=== PATIENT | male | born 1990 ===

== ENCOUNTER 2017-03-13 09:02 | Inpatient (IN) | payer MEDICAID ==
[2017-03-13 09:17] VITALS: BMI 20.5
--- NOTE | 2017-03-13 10:25 | ED PDOC ---
Arrival/HPI - General Chief Complaint: Psychiatric Evaluation Time Seen by Provider: 03/13/17 09:17 Historian: Patient - History of Present Illness Narrative History of Present Illness (Text): 03/13/17 08:45 William Azul is a 26 year old male whose past medical history includes ETOH abuse, transferred from [facility], for psych admission and evaluation. Patient admitted to suicidal ideation by Dr. Frost. Patient denies homicidal ideation, chest pain, shortness of breath, headache, fever, chills, cough, nausea, vomiting, diarrhea, abdominal pain, dizziness or other complaints. No PMD Time/Duration: Other (transferred from [facility] for psych admission) Symptom Onset: Sudden Modifying Factors (Text): None Associated Symptoms (Text): Suicidal Ideation and ETOH withdrawal Past Medical History - Provider Review Nursing Documentation Reviewed: Yes - Infectious Disease Hx of Infectious Diseases: None - Cardiac Hx Cardiac Disorders: No Hx Hypertension: No - Pulmonary Hx Tuberculosis: No - Neurological HX Cerebrovascular Accident: No Hx Seizures: No - Hematological/Oncological Hx Cancer: No - Musculoskeletal/Rheumatological Hx Falls: No - Genitourinary/Gynecological Hx Sexually Transmitted Diseases: No - Psychiatric Hx Anxiety: Yes Hx Bipolar Disorder: Yes Hx Depression: Yes Hx Substance Use: Yes - Surgical History Hx Orthopedic Surgery: Yes (Right wrist surgery) Other/Comment: surgery rt wrist 2010 - Anesthesia Hx Anesthesia: Yes Hx Anesthesia Reactions: No Hx Malignant Hyperthermia: No - Suicidal Assessment Feels Threatened In Home Enviroment: No Family/Social History - Physician Review Nursing Documentation Reviewed: Yes Family/Social History: Unknown Family HX Smoking Status: Heavy Smoker > 10 Cigarettes Daily Hx Alcohol Use: Yes Hx Substance Use: Yes Substance used: marijuana Hx Substance Use Treatment: Yes Allergies/Home Meds Allergies/Adverse Reactions: Allergies haloperidol [From Haldol] Adverse Reaction (Verified 03/13/17 09:28) PAIN muscle cramping, dystonia haloperidol lactate [From Haldol] Adverse Reaction (Verified 03/13/17 10:38) PAIN dystonia as per patient Home Medications: Home Meds Medication Instructions Recorded Confirmed Elviteg/Elis/Emtric/Tenofo Dis 1 each PO DAILY 03/12/17 03/12/17 [Stribild Tablet] Review of Systems - Physician Review All systems were reviewed & negative as marked: Yes - Review of Systems Respiratory: absent: SOB Cardiovascular: absent: Chest Pain Neurological: absent: Headache Psychiatric: Suicidal Ideation (with plan), Other (ETOH withdrawal) Physical Exam Vital Signs Reviewed: Yes Vital Signs Temp Pulse Resp BP Pulse Ox 03/13/17 09:03 98.7 F 98 H 19 124/74 96 Temperature: Afebrile Blood Pressure: Normal Pulse: Tachycardic Respiratory Rate: Normal Appearance: Positive for: Well-Appearing, Non-Toxic, Comfortable Pain Distress: None Mental Status: Positive for: Alert and Oriented X 3 - Systems Exam Head: Present: Atraumatic, Normocephalic Pupils: Present: PERRL Extroacular Muscles: Present: EOMI Conjunctiva: Present: Normal Mouth: Present: Moist Mucous Membranes Neck: Present: Normal Range of Motion Respiratory/Chest: Present: Clear to Auscultation, Good Air Exchange. No: Respiratory Distress, Accessory Muscle Use Cardiovascular: Present: Regular Rate and Rhythm, Normal S1, S2. No: Murmurs Abdomen: Present: Normal Bowel Sounds. No: Tenderness, Distention, Peritoneal Signs Back: Present: Normal Inspection Upper Extremity: Present: Normal Inspection. No: Cyanosis, Edema Lower Extremity: Present: Normal Inspection. No: Edema Neurological: Present: GCS=15, CN II-XII Intact, Speech Normal, Other (mild hand tremors; no tongue fasiculations) Skin: Present: Warm, Dry, Normal Color. No: Rashes Psychiatric: Present: Alert, Oriented x 3, Normal Insight, Normal Concentration , Suicidal Ideation, Other Medical Decision Making ED Course and Treatment: 03/13/17 Impression: 26 year old male with suicidal ideation and ETOH withdrawal. Plan: -- Ativan was not given secondary to patient going straight up to Psych. Progress Notes: Patient was accepted by Dr. Frost as a transfer and will be admitted under Dr. Cristina Resendez. - Medication Orders Current Medication Orders: Acetaminophen (Tylenol 325mg Tab) 650 mg PO Q6H PRN PRN Reason: Pain, moderate (4-7) Al Hydrox/Mg Hydrox/Simethicone (Maalox Plus 30 Ml) 30 ml PO DAILY PRN PRN Reason: Indigestion / Heartburn Folic Acid (Folic Acid) 1 mg PO DAILY [facility] Last Admin: 03/13/17 14:27 Dose: 1 mg Gabapentin (Neurontin) 300 mg PO TID [facility] PRN Reason: Protocol Lorazepam (Ativan) 2 mg PO QID TONI PRN Reason: Protocol Last Admin: 03/13/17 14:27 Dose: 2 mg Re-Assess: Reassess Psych Meds Document 03/13/17 15:27 CV (Rec: 03/13/17 15:50 CV [id number]) Reassess Psych Med Effective Lorazepam (Ativan) 2 mg PO Q6H PRN; Protocol PRN Reason: alcohol withdrawals Magnesium Hydroxide (Milk Of Magnesia) 30 ml PO DAILY PRN PRN Reason: Constipation Mirtazapine (Remeron) 15 mg PO HS TONI Multivitamins/Minerals (Therapeutic-M Tab) 1 tab PO 0800 TONI Nicotine (Nicoderm Cq) 1 patch TD DAILY [facility] Last Admin: 03/13/17 14:27 Dose: 1 patch Thiamine HCl (Vitamin B1 Tab) 100 mg PO DAILY [facility] Last Admin: 03/13/17 14:27 Dose: 100 mg Zaleplon (Sonata) 5 mg PO HS PRN PRN Reason: Insomnia Discontinued Medications Lorazepam (Ativan) 2 mg PO ONCE ONE PRN Reason: Protocol Stop: 03/13/17 10:20 Last Admin: 03/13/17 12:27 Dose: 2 mg Re-Assess: Reassess Psych Meds Document 03/13/17 13:27 CV (Rec: 03/13/17 14:24 CV [id number]) Reassess Psych Med Effective - Scribe Statement The provider has reviewed the documentation as recorded by the Scribe 03/13/2017 Karla Turner Provider Scribe Attestation: All medical record entries made by the Scribe were at my direction and personally dictated by me. I have reviewed the chart and agree that the record accurately reflects my personal performance of the history, physical exam, medical decision making, and the department course for this patient. I have also personally directed, reviewed, and agree with the discharge instructions and disposition. Disposition/Present on Arrival - Present on Arrival Any Indicators Present on Arrival: No History of DVT/PE: No History of Uncontrolled Diabetes: No Urinary Catheter: No History of Decub. Ulcer: No History Surgical Site Infection Following: None - Disposition Have Diagnosis and Disposition been Completed?: Yes Diagnosis: Psychiatric care, Alcohol withdrawal Disposition: HOSPITALIZED Disposition Time: 10:34 Patient Plan: Admission Condition: FAIR
[2017-03-13] MEDS ORDERED: Alum-Mag Hydrox-Simethicone Susp (30 mL) PO PRN (12:32)
[2017-03-13] MEDS ORDERED: Magnesium Hydroxide Susp 30 ml UD PO PRN (12:33)
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
--- NOTE | 2017-03-13 15:06 | PCM.BM ---
<Dana More Y - Last Filed: 03/13/17 15:05> - Milieu Protocol Milieu Narrative: milieu/structure/supportive therapy Gabapentin [Neurontin] 300mg tid will be resumed for mood stabilization, pt said he tolerated this med well will initiate ativan 2mg po qid scheduled and PRN for breakthrough withdrawal symptoms. will give remeron 15mg po hs for depression and insomnia will start MVI, thiamine, folic acid will call medical consult for HIV SW evaluation for possible inpatient rehab as per ED report pt was on: Elviteg/Elis/Emtric/Tenofo Dis [Stribild Tablet] 1 each PO DAILY will monitor pt's closely Family Contact Family involvement: Family/SO is involved Family contact: Patient agrees to contact - Goals for Treatment Patient goals for treatment: "I want to feel happy." Discharge/Continuing Care - Education Needs Education Needs: Patient Medication, Patient Diagnosis/Disease Process, Patient Coping Skills, Patient Community resources, Patient Health Practices/Safety, Patient Aftercare Safety Plan - Discharge Discharge Criteria: Tolerates medication w/o severe side effects, Free of Suicidal thoughts, Normal sleep pattern, No longer exhibiting s/s of withdrawal , Reduction of target symptoms Discharge to:: Home - Additional Comments milieu/structure/supportive therapy Gabapentin [Neurontin] 300mg tid will be resumed for mood stabilization, pt said he tolerated this med well will initiate ativan 2mg po qid scheduled and PRN for breakthrough withdrawal symptoms. will give remeron 15mg po hs for depression and insomnia will start MVI, thiamine, folic acid will call medical consult for HIV SW evaluation for possible inpatient rehab as per ED report pt was on: Elviteg/Elis/Emtric/Tenofo Dis [Stribild Tablet] 1 each PO DAILY will monitor pt's closely - Treatment Team Participation Patient/Family/SO Statement: milieu/structure/supportive therapy Gabapentin [Neurontin] 300mg tid will be resumed for mood stabilization, pt said he tolerated this med well will initiate ativan 2mg po qid scheduled and PRN for breakthrough withdrawal symptoms. will give remeron 15mg po hs for depression and insomnia will start MVI, thiamine, folic acid will call medical consult for HIV SW evaluation for possible inpatient rehab as per ED report pt was on: Elviteg/Elis/Emtric/Tenofo Dis [Stribild Tablet] 1 each PO DAILY will monitor pt's closely <Dima Johnson - Last Filed: 03/13/17 15:40> Treatment Plan Problems - Problems identified on initial assessmt hopelessness Date Initiated: 03/13/17 Time Initiated: 10:45 Assessment reference: NA Status: Active Priority: 1 Comment: lack of motivation/frustration feelings of worthlessness Date Initiated: 03/13/17 Assessment reference: NA Priority: 2 Comment: suicidal ideation plan to jump in front of moving traffic medication nonadherence Date Initiated: 03/13/17 Assessment reference: NA Status: Active Priority: 3 Comment: patient reported that he run out of medications anxiety related to substance use Date Initiated: 03/13/17 Assessment reference: NA Status: Active Priority: 4 Comment: drinking 8-10 beers daily and marijuana on/off Treatment assets and liabiliti Patient Assests: cooperative, educated, insightful, ADL independent, negotiates basic needs, good interpersonal skills Patient Liabilities: substance abuse, medical problems - Milieu Protocol Maintain good personal hygiene: every shift Encourage regular showers, every shift Remind patient to perform daily oral care, every shift Assist patient to perform ADL's Conduct patient checks and document Observation sheet: Q15 minutes Maintain personal safety: every shift Educate patient to report safety concerns to staff, every shift Monitor environment for contraband/sharps Medication safety: Monitor for expected outcome, potential side effects: every shift, Assess barriers to learning: every shift, Assess readiness for medication education: every shift <Cristina Goddard - Last Filed: 03/14/17 14:38> - Diagnosis (1) Alcohol dependence Status: Chronic Interventions: 03/14/17 14:37 Monitoring withdrawal symptoms Medical detoxification Pharmacotherapy for alcohol/benzos/opioid dependence Maintaining sobriety Relapse prevention Possible rehabilitation Motivational interviewing 12-step programs: AA meetings (2) Bipolar 1 disorder Status: Chronic Interventions: 03/14/17 14:37 Psychoeducation Psychopharmacology/adjustment of medications as needed/ monitoring possible side effects Monitor blood level of mood stabilizers Evaluate pt on daily basis Compliance with medications and follow up appointments Suicide and homicide risk assessment and prevention, coping strategies, safety plan Relapse prevention Reduction of symptoms Improve functional status Family intervention As outpatient: cognitive behavioral therapy
[2017-03-14 08:36] LABS: CHOLESTEROL 223 mg/dL (130-200); GLUCOSE,FASTING 100 mg/dL (65-110)
[2017-03-14] MEDS: Multivitamin With Minerals Tab PO SCH (08:49)
[2017-03-14 08:53] LABS: FREE T4 0.99 ng/dL (0.78-2.19)
[2017-03-14 09:07] LABS: THYROID STIMULATING HORMONE 3.27 mIU/mL (0.46-4.68)
--- NOTE | 2017-03-14 14:45 | PCM.PYCHPN ---
Psychiatric Progress Note - Psychiatric Progress Note Patient seen today, length of contact: 30min Patient Chief Complaint: "I feel better, I slept well last night" Problems Identified/Issues Discussed: Suicide/ homicide prevention, past psychiatric h/o, current psychiatric symptoms , medical problems, risk/benefits and alternatives of medications, medications compliance, coping strategies, substance abuse h/o, relapse prevention, importance of follow up with psychiatrist and therapist, discharge plan. Medical Problems: HIV Diagnostic Results: Lab Results 03/14/17 08:15: Free T4 0.99, TSH 3rd Generation 3.27 03/14/17 08:15: Fasting Glucose 100, Triglycerides 109, Cholesterol 223 H, LDL Cholesterol Direct 102, HDL Cholesterol 97 H Vital Signs Temp Pulse Resp BP Pulse Ox 03/14/17 07:21 97.5 F L 78 20 121/82 03/13/17 20:51 85 132/83 03/13/17 11:00 20 03/13/17 10:00 98.4 F 74 20 139/89 03/13/17 09:03 98.7 F 98 H 19 124/74 96 DSM 5 Symptoms Update: Shortly patient is 26 year old male, self reported h/o depression vs bipolar, alcohol use disorder, was transferred from the [facility] for evaluation of depressive symptoms, possible suicidal ideation with the plan to walk into the traffic. pt was seen and examined at the day treatment program, with medical student. pt presented with some improvements in regards of withdrawals, pt said that he slept better last night. pt was asking intelligent questions about his meds, pt was educated about them. pt reported to lose 15Lb because he was not eating well, asked for ensure, this ticket writer will call for dietary consult pt said that he is more hopeful, but still depressed. pt denied thoughts of harming self or others. pt's withdrawals are better, VS wnl. pt tolerates meds well, no side effects observed or reported, AIMS 0, no EPS. as per staff, pt is visible in the unit, started to socialize with others. Impression: r/o bipolar disorder alcohol use disorder alcohol withdrawal symptoms r/o substance induced mood disorder cannabis abuse Medication Change: Yes Medical Record Reviewed: Yes Consults ordered or reviewed: medical consult was called Mental Status Examination - Cognitive Function Orientation: Person, Place, Situation Memory: Intact Attention: Poor Concentration: Poor Association: WNL Fund of Knowledge: WNL - Mood Mood: Depressed, Anxious - Affect Affect: Constricted (tearful) - Formal Thought Process Formal Thought Process: No Impairment - Suicidal Ideation Suicidal Ideation: No - Homicidal Ideation Homicidal Ideation: No Goal/Treatment Plan - Goal/Treatment Plan Need for Continued Stay: Remain at risks for inpatient hospitalization, Severe depression anxiety, Discharge may exacerbated symptoms, Severe functional impairment Progress Toward Problem(s) and Goals/Treatment Plan: milieu/structure/supportive therapy Gabapentin [Neurontin] 600mg tid for mood stabilization, pt said he tolerated this med well will initiate ativan 2mg po qid scheduled and PRN for breakthrough withdrawal symptoms. will give remeron 15mg po hs for depression and insomnia will start MVI, thiamine, folic acid will call medical consult for HIV SW evaluation for possible inpatient rehab as per ED report pt was on: Elviteg/Elis/Emtric/Tenofo Dis [Stribild Tablet] 1 each PO DAILY will monitor pt's closely Estimated Date of D/C: 03/19/17
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
[2017-03-15 08:10] LABS: ALKALINE PHOSPHATASE 65 U/L (38-133); ALT/SGPT 93 U/L (7-56); AST/SGOT 103 U/L (15-59); BILIRUBIN,TOTAL 0.9 mg/dL (0.2-1.3); BLOOD UREA NITROGEN 15 mg/dL (7-21); CALCIUM 9.2 mg/dL (8.4-10.5); CARBON DIOXIDE 28 mmol/L (21-33); CHLORIDE 102 mmol/L (95-110); GFR AFRICAN-AMERICAN > 60; GLUCOSE,RANDOM 98 mg/dL (70-110); POTASSIUM 4.7 mmol/L (3.6-5.0); SODIUM 138 mmol/L (132-148); TOTAL PROTEIN 8.8 g/dL (5.8-8.3)
--- NOTE | 2017-03-15 08:32 | PCM.PYCHPN ---
Psychiatric Progress Note - Psychiatric Progress Note Patient seen today, length of contact: 30min Patient Chief Complaint: "I was upset, my fiance did not call me..." Problems Identified/Issues Discussed: Suicide/ homicide prevention, past psychiatric h/o, current psychiatric symptoms , medical problems, risk/benefits and alternatives of medications, medications compliance, coping strategies, substance abuse h/o, relapse prevention, importance of follow up with psychiatrist and therapist, discharge plan. Medical Problems: HIV Diagnostic Results: Lab Results 03/14/17 08:15: Free T4 0.99, TSH 3rd Generation 3.27 03/14/17 08:15: Fasting Glucose 100, Triglycerides 109, Cholesterol 223 H, LDL Cholesterol Direct 102, HDL Cholesterol 97 H Vital Signs Temp Pulse Resp BP Pulse Ox 03/14/17 07:21 97.5 F L 78 20 121/82 03/13/17 20:51 85 132/83 03/13/17 11:00 20 03/13/17 10:00 98.4 F 74 20 139/89 03/13/17 09:03 98.7 F 98 H 19 124/74 96 DSM 5 Symptoms Update: Shortly patient is 26 year old male, self reported h/o depression vs bipolar, alcohol use disorder, was transferred from the [facility] for evaluation of depressive symptoms, possible suicidal ideation with the plan to walk into the traffic. pt was seen and examined at the day treatment program, with medical student. pt presented with some improvements in regards of withdrawals, pt said that he slept better last night. pt is upset that his fiance did not call him, as per RN report pt was crying and was restless and agitated yesterday, but no need IM, was able to calm down after 1:1 interaction. pt was asking intelligent questions about his meds, pt was educated about them. pt reported to lose 15Lb because he was not eating well, medical consult appreciated, dietitian consult was called. pt said that he is more hopeful, but still depressed. pt denied thoughts of harming self or others. pt's withdrawals are better, VS wnl. pt tolerates meds well, no side effects observed or reported, AIMS 0, no EPS. Impression: r/o bipolar disorder alcohol use disorder alcohol withdrawal symptoms r/o substance induced mood disorder cannabis abuse Medication Change: Yes (remeron increased, ativan decreased) Medical Record Reviewed: Yes Consults ordered or reviewed: medical consult was called Mental Status Examination - Cognitive Function Orientation: Person, Place, Situation Memory: Intact Attention: Poor Concentration: Poor Association: WNL Fund of Knowledge: WNL - Mood Mood: Depressed, Anxious - Affect Affect: Constricted (tearful) - Formal Thought Process Formal Thought Process: No Impairment - Suicidal Ideation Suicidal Ideation: No - Homicidal Ideation Homicidal Ideation: No Goal/Treatment Plan - Goal/Treatment Plan Need for Continued Stay: Remain at risks for inpatient hospitalization, Severe depression anxiety, Discharge may exacerbated symptoms, Severe functional impairment Progress Toward Problem(s) and Goals/Treatment Plan: milieu/structure/supportive therapy Gabapentin [Neurontin] 600mg tid for mood stabilization, pt said he tolerated this med well will start taper down ativan today will be 2mg po tid, taper down accordingly will increase remeron 30mg po hs for depression and insomnia MVI, thiamine, folic acid medical consult appreciated for HIV SW evaluation for possible inpatient rehab dietitian consult called as per ED report pt was on: Elviteg/Elis/Emtric/Tenofo Dis [Stribild Tablet] 1 each PO DAILY will monitor pt's closely Estimated Date of D/C: 03/19/17
[2017-03-15] MEDS: Multivitamin With Minerals Tab PO SCH (10:07)
[2017-03-15] MEDS: Pantoprazole 40 mg EC Tab PO SCH (10:07)
[2017-03-15 12:16] LABS: PH,URINE 7.5 (4.7-8.0); URINE BILIRUBIN NEGATIVE (NEGATIVE); URINE BLOOD NEGATIVE (NEGATIVE); URINE GLUCOSE (UA) NEGATIVE (NEGATIVE); URINE KETONE TRACE mg/dL (NEGATIVE); URINE LEUKOCYTE ESTERASE NEGATIVE Leu/uL (NEGATIVE); URINE PROTEIN NEGATIVE mg/dL (<30 mg/dL)
[2017-03-15 12:20] LABS: URINE APPEARANCE CLOUDY (CLEAR); URINE COLOR YELLOW (YELLOW)
--- NOTE | 2017-03-15 16:15 | CP.PCM.CON ---
<Luke Hurt - Last Filed: 03/15/17 17:06> History of Present Illness - History of Present Illness History of Present Illness: PGY-[address] Acevedo's Neurology Service: Reason for consultation: Memory issues This is a 26 year old male with PMHx HIV, polysubstance abuse (tobacco, alcohol , marijuana), anxiety, depression who presented to the hospital with suicidal ideation. Patient was noted to have episodes of forgetfulness. Per EMR, patient does not remember that he covered himself with a blanket and lay on the floor in the dining area. Patient states that he was told that he did something that he does not remember doing. At this time patient denies suicidal ideation but admits severe anxiety and feelings of hopelessness. Patient states that he has not had any prior memory problem. Patient is currently under a lot of stress due to his home situation and job status. PMHx: HIV from , polysubstance abuse, anxiety, depression PSHx: Right wrist surgery Allergies: Haldol Social: Current smoker, ETOH abuser, marijuana use. Review of Systems - Constitutional Constitutional: absent: Headache, Weakness - EENT Eyes: absent: Change in Vision Ears: absent: Decreased Hearing - Cardiovascular Cardiovascular: absent: Chest Pain - Respiratory Respiratory: absent: Dyspnea - Gastrointestinal Gastrointestinal: absent: Abdominal Pain, Nausea, Vomiting - Musculoskeletal Musculoskeletal: absent: Numbness - Neurological Neurological: absent: Confusion, Dizziness, Headaches, Tingling, Weakness - Psychiatric Psychiatric: Anxiety, Depression, Hopelessness, Panic Attacks. absent: Suicidal Ideation Past Patient History - Infectious Disease Hx of Infectious Diseases: None - Past Medical History & Family History Past Medical History?: Yes - Past Social History Smoking Status: Heavy Smoker > 10 Cigarettes Daily Drugs: Cannabis - CARDIAC Hx Cardiac Disorders: No Hx Hypertension: No - PULMONARY Hx Tuberculosis: No - NEUROLOGICAL HX Cerebrovascular Accident: No Hx Seizures: No - HEENT Hx HEENT Problems: No - RENAL Hx Chronic Kidney Disease: No - ENDOCRINE/METABOLIC Hx Endocrine Disorders: No - HEMATOLOGICAL/ONCOLOGICAL Hx Cancer: No - INTEGUMENTARY Hx Dermatological Problems: No - MUSCULOSKELETAL/RHEUMATOLOGICAL Hx Falls: No - GASTROINTESTINAL Hx Gastrointestinal Disorders: No - GENITOURINARY/GYNECOLOGICAL Hx Sexually Transmitted Disorders: No - PSYCHIATRIC Hx Anxiety: Yes Hx Bipolar Disorder: Yes Hx Depression: Yes Hx Substance Use: Yes - SURGICAL HISTORY Hx Orthopedic Surgery: Yes (Right wrist surgery) Other/Comment: surgery rt wrist 2010 - ANESTHESIA Hx Anesthesia: Yes Hx Anesthesia Reactions: No Hx Malignant Hyperthermia: No Meds Allergies/Adverse Reactions: Allergies Allergy/AdvReac Type Severity Reaction Status Date / Time haloperidol [From Haldol] AdvReac PAIN Verified 03/13/17 09:28 haloperidol lactate AdvReac PAIN Verified 03/13/17 10:38 [From Haldol] - Medications Medications: Current Medications Al Hydrox/Mg Hydrox/Simethicone (Maalox Plus 30 Ml) 30 ml PO DAILY PRN PRN Reason: Indigestion / Heartburn Folic Acid (Folic Acid) 1 mg PO DAILY [facility] Last Admin: 03/15/17 10:07 Dose: 1 mg Gabapentin (Neurontin) 600 mg PO QID TONI PRN Reason: Protocol Last Admin: 03/15/17 13:27 Dose: 600 mg Lorazepam (Ativan) 2 mg PO Q6H PRN; Protocol PRN Reason: alcohol withdrawals Last Admin: 03/15/17 08:00 Dose: 2 mg Lorazepam (Ativan) 2 mg PO TID TONI PRN Reason: Protocol Last Admin: 03/15/17 13:00 Dose: 2 mg Magnesium Hydroxide (Milk Of Magnesia) 30 ml PO DAILY PRN PRN Reason: Constipation Mirtazapine (Remeron) 30 mg PO HS [facility] Multivitamins/Minerals (Therapeutic-M Tab) 1 tab PO 0800 [facility] Last Admin: 03/15/17 10:07 Dose: 1 tab Nicotine (Nicoderm Cq) 1 patch TD DAILY [facility] Last Admin: 03/15/17 10:07 Dose: 1 patch Pantoprazole Sodium (Protonix Ec Tab) 40 mg PO 0600 [facility] Last Admin: 03/15/17 10:07 Dose: 40 mg Thiamine HCl (Vitamin B1 Tab) 100 mg PO DAILY [facility] Last Admin: 03/15/17 10:09 Dose: 100 mg Zaleplon (Sonata) 5 mg PO HS PRN PRN Reason: Insomnia Last Admin: 03/14/17 21:30 Dose: 5 mg Physical Exam - Constitutional Appears: No Acute Distress - Head Exam Head Exam: ATRAUMATIC, NORMAL INSPECTION, NORMOCEPHALIC - Eye Exam Eye Exam: EOMI, PERRL - ENT Exam ENT Exam: Mucous Membranes Moist - Respiratory Exam Respiratory Exam: Clear to Auscultation Bilateral - Cardiovascular Exam Cardiovascular Exam: REGULAR RHYTHM - GI/Abdominal Exam GI & Abdominal Exam: Normal Bowel Sounds - Neurological Exam Neurological exam: Alert, CN II-XII Intact, Oriented x3, Reflexes Normal Additional comments: Manual muscle strength 5/5 bilateral UE and LE No pronator drift Sensations intact bilaterally Down-going plantar responses. - Psychiatric Exam Psychiatric exam: Anxious Results - Vital Signs Recent Vital Signs: Last Vital Signs Temp 98.0 F 03/15/17 07:35 Pulse 100 H 03/15/17 07:35 Resp 20 03/15/17 07:35 BP 113/73 03/15/17 07:35 Pulse Ox 96 03/13/17 09:03 - Labs Result Diagrams: 03/15/17 07:40 Labs: Laboratory Results - last 24 hr 03/14/17 03/15/17 03/15/17 08:15 07:40 07:40 Sodium 138 Potassium 4.7 Chloride 102 Carbon Dioxide 28 Anion Gap 13 BUN 15 Creatinine 0.8 Est GFR ( Amer) > 60 Est GFR (Non-Af Amer) > 60 Random Glucose 98 Calcium 9.2 Total Bilirubin 0.9 AST 103 H ALT 93 H Alkaline Phosphatase 65 Total Protein 8.8 H Albumin 4.3 Globulin 4.5 Albumin/Globulin Ratio 1.0 L Urine Color Urine Appearance Urine pH Ur Specific [place] Urine Protein Urine Glucose (UA) Urine Ketones Urine Blood Urine Nitrate Urine Bilirubin Urine Urobilinogen Ur Leukocyte Esterase RPR Nonreactive Hepatitis A IgM Ab Negative Hep Bs Antigen Negative Hep B Core IgM Ab Negative Hepatitis C Antibody Negative 03/15/17 11:40 Sodium Potassium Chloride Carbon Dioxide Anion Gap BUN Creatinine Est GFR ( Amer) Est GFR (Non-Af Amer) Random Glucose Calcium Total Bilirubin AST ALT Alkaline Phosphatase Total Protein Albumin Globulin Albumin/Globulin Ratio Urine Color Yellow Urine Appearance Cloudy Urine pH 7.5 Ur Specific [place] 1.015 Urine Protein Negative Urine Glucose (UA) Negative Urine Ketones Trace H Urine Blood Negative Urine Nitrate Negative Urine Bilirubin Negative Urine Urobilinogen 1.0 H Ur Leukocyte Esterase Negative RPR Hepatitis A IgM Ab Hep Bs Antigen Hep B Core IgM Ab Hepatitis C Antibody Assessment & Plan - Assessment and Plan (Free Text) Assessment: This is a 26 year old male with PMHx HIV, polysubstance abuse (tobacco, alcohol , marijuana), anxiety, depression who presented to the hospital with suicidal ideation. Patient had episode of forgetfulness. This is likely due to a psychiatric stress response based on patient's current circumstances with his employment status and financial situation. Plan: 1) Coenzyme Q10 400 mg daily for memory and attentiveness 2) Advised to do concentration exercises. 3) Advised to do relaxation techniques Patient is neurologically stable Case discussed with Dr. Curtis Hurt PGY1 - Date & Time Date: 03/15/17 Time: 15:00 <Jagdeep Acevedo - Last Filed: 03/15/17 17:40> Meds - Medications Medications: Current Medications Al Hydrox/Mg Hydrox/Simethicone (Maalox Plus 30 Ml) 30 ml PO DAILY PRN PRN Reason: Indigestion / Heartburn Folic Acid (Folic Acid) 1 mg PO DAILY [facility] Last Admin: 03/15/17 10:07 Dose: 1 mg Gabapentin (Neurontin) 600 mg PO QID TONI PRN Reason: Protocol Last Admin: 03/15/17 17:32 Dose: 600 mg Lorazepam (Ativan) 2 mg PO Q6H PRN; Protocol PRN Reason: alcohol withdrawals Last Admin: 03/15/17 08:00 Dose: 2 mg Lorazepam (Ativan) 2 mg PO TID TONI PRN Reason: Protocol Last Admin: 03/15/17 17:33 Dose: 2 mg Magnesium Hydroxide (Milk Of Magnesia) 30 ml PO DAILY PRN PRN Reason: Constipation Mirtazapine (Remeron) 30 mg PO HS [facility] Multivitamins/Minerals (Therapeutic-M Tab) 1 tab PO 0800 [facility] Last Admin: 03/15/17 10:07 Dose: 1 tab Nicotine (Nicoderm Cq) 1 patch TD DAILY [facility] Last Admin: 03/15/17 10:07 Dose: 1 patch Pantoprazole Sodium (Protonix Ec Tab) 40 mg PO 0600 [facility] Last Admin: 03/15/17 10:07 Dose: 40 mg Thiamine HCl (Vitamin B1 Tab) 100 mg PO DAILY [facility] Last Admin: 03/15/17 10:09 Dose: 100 mg Zaleplon (Sonata) 5 mg PO HS PRN PRN Reason: Insomnia Last Admin: 03/14/17 21:30 Dose: 5 mg Results - Vital Signs Recent Vital Signs: Last Vital Signs Temp 98.0 F 03/15/17 07:35 Pulse 93 H 03/15/17 16:00 Resp 20 03/15/17 07:35 BP 147/89 03/15/17 16:00 Pulse Ox 96 03/13/17 09:03 - Labs Result Diagrams: 03/15/17 07:40 Labs: Laboratory Results - last 24 hr 03/15/17 03/15/17 03/15/17 07:40 07:40 11:40 Sodium 138 Potassium 4.7 Chloride 102 Carbon Dioxide 28 Anion Gap 13 BUN 15 Creatinine 0.8 Est GFR ( Amer) > 60 Est GFR (Non-Af Amer) > 60 Random Glucose 98 Calcium 9.2 Total Bilirubin 0.9 AST 103 H ALT 93 H Alkaline Phosphatase 65 Total Protein 8.8 H Albumin 4.3 Globulin 4.5 Albumin/Globulin Ratio 1.0 L Urine Color Yellow Urine Appearance Cloudy Urine pH 7.5 Ur Specific [place] 1.015 Urine Protein Negative Urine Glucose (UA) Negative Urine Ketones Trace H Urine Blood Negative Urine Nitrate Negative Urine Bilirubin Negative Urine Urobilinogen 1.0 H Ur Leukocyte Esterase Negative Hepatitis A IgM Ab Negative Hep Bs Antigen Negative Hep B Core IgM Ab Negative Hepatitis C Antibody Negative
--- NOTE | 2017-03-16 08:54 | PCM.PYCHPN ---
Psychiatric Progress Note - Psychiatric Progress Note Patient seen today, length of contact: 25 min Patient Chief Complaint: "okay" Problems Identified/Issues Discussed: I reviewed assessment and recent notes and patient was interviewed at bedside. Patient is groomed and appears fairly calm during my visit. He denies any new concerns and reports feeling "okay". Reports improvement since admission, he is more hopeful. Affect demonstrates appropriate range. Denies hallucinations or paranoia. He is coherent during my interview and his responses are relevant to questioning. Patient denies any side effects, discomfort or pain. Nursing notes indicate the patient has been in good control, friendly on the unit with no evidence of altered thought process. Appears to be gradually improving.There were no behavioral issues overnight. Diagnostic Results: r/o bipolar disorder alcohol use disorder alcohol withdrawal symptoms r/o substance induced mood disorder cannabis abuse Medication Change: No ( ) Medical Record Reviewed: Yes Mental Status Examination - Cognitive Function Orientation: Person, Place, Situation Memory: Intact Attention: WNL Concentration: Poor Association: WNL Fund of Knowledge: WNL - Mood Mood: Depressed ("okay"), Anxious - Affect Affect: Constricted (moderate range with some reactivity) - Speech Speech: Appropriate - Formal Thought Process Formal Thought Process: No Impairment - Suicidal Ideation Suicidal Ideation: No - Homicidal Ideation Homicidal Ideation: No Goal/Treatment Plan - Goal/Treatment Plan Need for Continued Stay: Remain at risks for inpatient hospitalization, Severe depression anxiety, Discharge may exacerbated symptoms, Severe functional impairment Progress Toward Problem(s) and Goals/Treatment Plan: * c/w current tx and plan * Ativan taper as tolerated * Appreciate f/u by Dr. Acevedo [Recommend Coenzyme Q10 400 mg daily for memory and attentiveness, concentration exercises/relaxation techniques] * No new weekend labs * Vitals reviewed and noted below: Selected Entries 03/15/17 03/15/17 07:35 16:00 Temperature 98.0 F Pulse Rate 100 H 93 H Respiratory 20 Rate Blood Pressure 113/73 147/89 Estimated Date of D/C: 03/19/17
[2017-03-16] MEDS: Multivitamin With Minerals Tab PO SCH (08:58)
[2017-03-16] MEDS: Pantoprazole 40 mg EC Tab PO SCH (08:58)
--- NOTE | 2017-03-16 16:03 | CP.PCM.PN ---
Addendum entered and electronically signed by Cooper Goode DO 16:06: Subjective: Mr. Azul has pmhx of etoh abuse, was admitted for general psych evaluation for suicidal ideation. Phys Exam: 97.4 127/83 74bpm 20RR A/P: Mr. Azul is a 26 y/o M s/p fall. Plan: Monitor closely. Original Note: <Cooper Goode - Last Filed: 03/16/17 15:58> Subjective - Date & Time of Evaluation Date of Evaluation: 03/16/17 Time of Evaluation: 15:45 - Subjective Subjective: president and chief commercial officer responded to [facility] stat with attending, Dr. Johnson. Pt s/ e. Pt reports tripping over his feet and falling backwards, hitting his elbow. Pt denies feeling dizzy before falling or any other symptoms. Pt further denies any loss of consciousness, loss of mobility, or head injury. Patient also denies any symptoms at present. Pt did not have any seizure activity. Objective - Vital Signs/Intake and Output Vital Signs (last 24 hours): Temp Pulse Resp BP Pulse Ox 97.8 F 84 20 124/78 96 03/16/17 06:39 03/16/17 06:39 03/16/17 06:39 03/16/17 06:39 03/13/17 09:03 - Medications Medications: Current Medications Al Hydrox/Mg Hydrox/Simethicone (Maalox Plus 30 Ml) 30 ml PO DAILY PRN PRN Reason: Indigestion / Heartburn Folic Acid (Folic Acid) 1 mg PO DAILY [facility] Last Admin: 03/16/17 08:58 Dose: 1 mg Gabapentin (Neurontin) 600 mg PO QID TONI PRN Reason: Protocol Last Admin: 03/16/17 14:10 Dose: 600 mg Lorazepam (Ativan) 2 mg PO Q6H PRN; Protocol PRN Reason: alcohol withdrawals Last Admin: 03/16/17 10:58 Dose: 2 mg Lorazepam (Ativan) 2 mg PO TID TONI PRN Reason: Protocol Last Admin: 03/16/17 14:48 Dose: 2 mg Magnesium Hydroxide (Milk Of Magnesia) 30 ml PO DAILY PRN PRN Reason: Constipation Mirtazapine (Remeron) 30 mg PO HS [facility] Last Admin: 03/15/17 21:30 Dose: 30 mg Multivitamins/Minerals (Therapeutic-M Tab) 1 tab PO 0800 [facility] Last Admin: 03/16/17 08:58 Dose: 1 tab Nicotine (Nicoderm Cq) 1 patch TD DAILY [facility] Last Admin: 03/16/17 08:55 Dose: Not Given Pantoprazole Sodium (Protonix Ec Tab) 40 mg PO 0600 [facility] Last Admin: 03/16/17 08:58 Dose: 40 mg Thiamine HCl (Vitamin B1 Tab) 100 mg PO DAILY [facility] Last Admin: 03/16/17 08:57 Dose: 100 mg Zaleplon (Sonata) 5 mg PO HS PRN PRN Reason: Insomnia Last Admin: 03/15/17 21:31 Dose: 5 mg - Labs Labs: 03/15/17 07:40 - Constitutional Appears: Well - Head Exam Head Exam: ATRAUMATIC, NORMAL INSPECTION, NORMOCEPHALIC Additional comments: no hematoma, no tenderness, neck supple no c-spine tenderness - Eye Exam Eye Exam: EOMI, Normal appearance, PERRL Pupil Exam: NORMAL ACCOMODATION, PERRL - ENT Exam ENT Exam: Mucous Membranes Moist, Normal Exam - Neck Exam Neck Exam: Full ROM, Normal Inspection - Respiratory Exam Respiratory Exam: Clear to Ausculation Bilateral, NORMAL BREATHING PATTERN - Cardiovascular Exam Cardiovascular Exam: REGULAR RHYTHM, +S1, +S2 - GI/Abdominal Exam GI & Abdominal Exam: Soft, Normal Bowel Sounds - Rectal Exam Rectal Exam: Deferred - Extremities Exam Extremities Exam: Full ROM, Normal Capillary Refill, Normal Inspection - Back Exam Back Exam: NORMAL INSPECTION - Neurological Exam Neurological Exam: Alert, Awake, CN II-XII Intact, Normal Gait, Oriented x3 Additional comments: no los, no focal neurological deficits, muscle strength ue and le are all 5/5. Moves all extremities, head, and neck both passively and actively - Psychiatric Exam Psychiatric exam: Normal Affect - Skin Skin Exam: Intact, Normal Color <Flaquita Johnson - Last Filed: 03/16/17 17:02> Objective - Vital Signs/Intake and Output Vital Signs (last 24 hours): Temp Pulse Resp BP Pulse Ox 97.8 F 84 20 124/78 96 03/16/17 06:39 03/16/17 06:39 03/16/17 06:39 03/16/17 06:39 03/13/17 09:03 - Medications Medications: Current Medications Al Hydrox/Mg Hydrox/Simethicone (Maalox Plus 30 Ml) 30 ml PO DAILY PRN PRN Reason: Indigestion / Heartburn Folic Acid (Folic Acid) 1 mg PO DAILY [facility] Last Admin: 03/16/17 08:58 Dose: 1 mg Gabapentin (Neurontin) 600 mg PO QID TONI PRN Reason: Protocol Last Admin: 03/16/17 14:10 Dose: 600 mg Lorazepam (Ativan) 2 mg PO Q6H PRN; Protocol PRN Reason: alcohol withdrawals Last Admin: 03/16/17 10:58 Dose: 2 mg Lorazepam (Ativan) 2 mg PO TID TONI PRN Reason: Protocol Last Admin: 03/16/17 14:48 Dose: 2 mg Magnesium Hydroxide (Milk Of Magnesia) 30 ml PO DAILY PRN PRN Reason: Constipation Mirtazapine (Remeron) 30 mg PO HS [facility] Last Admin: 03/15/17 21:30 Dose: 30 mg Multivitamins/Minerals (Therapeutic-M Tab) 1 tab PO 0800 [facility] Last Admin: 03/16/17 08:58 Dose: 1 tab Nicotine (Nicoderm Cq) 1 patch TD DAILY [facility] Last Admin: 03/16/17 08:55 Dose: Not Given Pantoprazole Sodium (Protonix Ec Tab) 40 mg PO 0600 [facility] Last Admin: 03/16/17 08:58 Dose: 40 mg Thiamine HCl (Vitamin B1 Tab) 100 mg PO DAILY [facility] Last Admin: 03/16/17 08:57 Dose: 100 mg Zaleplon (Sonata) 5 mg PO HS PRN PRN Reason: Insomnia Last Admin: 03/15/17 21:31 Dose: 5 mg - Labs Labs: 03/15/17 07:40 Attending/Attestation - Attestation I have personally seen and examined this patient.: Yes I have fully participated in the care of the patient.: Yes I have reviewed all pertinent clinical information, including history, physical exam and plan: Yes Notes (Text): 03/16/17 17:01 No LOC or seizure activity reported by staff.
[2017-03-17 08:24] LABS: BLOOD UREA NITROGEN 20 mg/dL (7-21); CALCIUM 8.6 mg/dL (8.4-10.5); CARBON DIOXIDE 29 mmol/L (21-33); CHLORIDE 102 mmol/L (98-107); GFR AFRICAN-AMERICAN > 60; GLUCOSE,RANDOM 77 mg/dL (70-110); POTASSIUM 4.3 mmol/L (3.6-5.0); SODIUM 137 mmol/L (132-148)
--- NOTE | 2017-03-17 08:50 | PCM.PYCHPN ---
Psychiatric Progress Note - Psychiatric Progress Note Patient seen today, length of contact: 25 min Patient Chief Complaint: "okay" Problems Identified/Issues Discussed: I reviewed recent notes and met with patient in the hallway. Patient is groomed and remains well oriented to circumstances. Nursing notes indicate the patient was anxious and restless on the unit yesterday. Seen pacing. At times he is reluctant to take prescribed Ativan. He is not agitated or threatening. Remains in good control In that respect. He denies any new concerns and reports that anxiety is improved from yesterday. Patient remains hopeful. Affect demonstrates appropriate range with mild anxiety. Denies hallucinations or paranoia. He is coherent during my interview and his responses are relevant to questioning. Patient denies any side effects, discomfort or pain. Friendly on the unit towards peers with no evidence of altered thought process. Appears to be gradually improving.There were no behavioral issues over the weekend. Of note: patient tripped and fell yesterday. [facility] was called. There was no LOC or head injury. Diagnostic Results: r/o bipolar disorder alcohol use disorder alcohol withdrawal symptoms r/o substance induced mood disorder cannabis abuse Medication Change: Yes (Ativan tapered to 2 mg AMHS on 03/17/17 ) Medical Record Reviewed: Yes Mental Status Examination - Cognitive Function Orientation: Person, Place, Situation Memory: Intact Attention: WNL Concentration: Poor Association: WNL Fund of Knowledge: WNL - Mood Mood: Depressed ("okay"), Anxious - Affect Affect: Constricted (moderate range with some reactivity) - Speech Speech: Appropriate - Formal Thought Process Formal Thought Process: No Impairment - Suicidal Ideation Suicidal Ideation: No - Homicidal Ideation Homicidal Ideation: No Goal/Treatment Plan - Goal/Treatment Plan Need for Continued Stay: Remain at risks for inpatient hospitalization, Severe depression anxiety, Discharge may exacerbated symptoms, Severe functional impairment Progress Toward Problem(s) and Goals/Treatment Plan: * c/w current tx and plan * Ativan tapered to 2 mg AMHS on 03/17/17 * Appreciate f/u by Dr. Goode/Dr. Johnson s/p [facility] 03/16/17 at 15:45~ patient tripped and fell w/o LOC, head injury or seizure activity * Appreciate f/u by Dr. Acevedo [Recommend Coenzyme Q10 400 mg daily for memory and attentiveness, concentration exercises/relaxation techniques] * Vitals reviewed and noted below: 03/15/17 03/15/17 03/16/17 07:35 16:00 06:39 Temperature 98.0 F 97.8 F Pulse Rate 100 H 93 H 84 Respiratory 20 20 Rate Blood Pressure 113/73 147/89 124/78 03/16/17 22:30 Temperature Pulse Rate 78 Respiratory Rate Blood Pressure 121/74 * Weekend labs noted below: Laboratory Results - last 24 hr 03/17/17 08:05 Sodium 137 Potassium 4.3 Chloride 102 Carbon Dioxide 29 Anion Gap 10 BUN 20 Creatinine 0.7 Est GFR ( Amer) > 60 Est GFR (Non-Af Amer) > 60 Random Glucose 77 Calcium 8.6 Estimated Date of D/C: 03/19/17
[2017-03-17] MEDS: Multivitamin With Minerals Tab PO SCH (09:04)
[2017-03-17] MEDS: Pantoprazole 40 mg EC Tab PO SCH (09:04)
[2017-03-18 07:45] VITALS: RESP 20
[2017-03-18] MEDS: Multivitamin With Minerals Tab PO SCH (09:04)
[2017-03-18] MEDS: Pantoprazole 40 mg EC Tab PO SCH (09:05)
--- NOTE | 2017-03-18 15:56 | PCM.PYCHPN ---
Psychiatric Progress Note - Psychiatric Progress Note Patient seen today, length of contact: 30min Patient Chief Complaint: "I am much better" Problems Identified/Issues Discussed: Suicide/ homicide prevention, past psychiatric h/o, current psychiatric symptoms , medical problems, risk/benefits and alternatives of medications, medications compliance, coping strategies, substance abuse h/o, relapse prevention, importance of follow up with psychiatrist and therapist, discharge plan. Medical Problems: HIV Diagnostic Results: Lab Results 03/14/17 08:15: Free T4 0.99, TSH 3rd Generation 3.27 03/14/17 08:15: Fasting Glucose 100, Triglycerides 109, Cholesterol 223 H, LDL Cholesterol Direct 102, HDL Cholesterol 97 H Vital Signs Temp Pulse Resp BP Pulse Ox 03/14/17 07:21 97.5 F L 78 20 121/82 03/13/17 20:51 85 132/83 03/13/17 11:00 20 03/13/17 10:00 98.4 F 74 20 139/89 03/13/17 09:03 98.7 F 98 H 19 124/74 96 Laboratory Results - last 72 hr 03/17/17 08:05 Sodium 137 Potassium 4.3 Chloride 102 Carbon Dioxide 29 Anion Gap 10 BUN 20 Creatinine 0.7 Est GFR ( Amer) > 60 Est GFR (Non-Af Amer) > 60 Random Glucose 77 Calcium 8.6 Temp Pulse Resp BP Pulse Ox 97.8 F 78 20 107/72 98 03/18/17 07:44 03/18/17 07:44 03/18/17 07:44 03/18/17 07:44 03/17/17 22:00 DSM 5 Symptoms Update: Shortly patient is 26 year old male, self reported h/o depression vs bipolar, alcohol use disorder, was transferred from the [facility] for evaluation of depressive symptoms, possible suicidal ideation with the plan to walk into the traffic. pt was seen and examined at the hallway, presented better. pt was seen by neurology team, was started on coenzyme q10 as outpatient, no further recommendation pt reported his mood is better, pt said that he is ready for d/c tomorrow. pt was asking intelligent questions about his meds, pt was educated about them. appetite improved pt said that he is more hopeful, but still depressed. pt denied thoughts of harming self or others. pt's withdrawals are better, VS wnl. pt tolerates meds well, no side effects observed or reported, AIMS 0, no EPS. Impression: r/o bipolar disorder alcohol use disorder alcohol withdrawal symptoms r/o substance induced mood disorder cannabis abuse Medication Change: Yes (ativan decreased and given only as PRN) Medical Record Reviewed: Yes Consults ordered or reviewed: medical consult was called neurology consult appreciated Mental Status Examination - Cognitive Function Orientation: Person, Place, Situation Memory: Intact Attention: WNL Concentration: Poor (improved) Association: WNL Fund of Knowledge: WNL - Mood Mood: Depressed (less), Anxious - Affect Affect: Constricted (moderate range with some reactivity) - Speech Speech: Appropriate - Formal Thought Process Formal Thought Process: No Impairment - Suicidal Ideation Suicidal Ideation: No - Homicidal Ideation Homicidal Ideation: No Goal/Treatment Plan - Goal/Treatment Plan Need for Continued Stay: Remain at risks for inpatient hospitalization, Severe depression anxiety, Discharge may exacerbated symptoms, Severe functional impairment Progress Toward Problem(s) and Goals/Treatment Plan: milieu/structure/supportive therapy Gabapentin [Neurontin] 600mg tid for mood stabilization, pt said he tolerated this med well ativan today will be 1mg po bid, taper down accordingly remeron 30mg po hs for depression and insomnia MVI, thiamine, folic acid medical consult appreciated for HIV SW evaluation for possible inpatient rehab dietitian consult called as per ED report pt was on: Elviteg/Elis/Emtric/Tenofo Dis [Stribild Tablet] 1 each PO DAILY will monitor pt's closely neurology consult appreciated Estimated Date of D/C: 03/19/17
[2017-03-19 06:35] VITALS: BP 120/77; PULSE 100; TEMP 97.4; O2SAT 100
[2017-03-19] MEDS: Pantoprazole 40 mg EC Tab PO SCH (06:50)
[2017-03-19] MEDS: Multivitamin With Minerals Tab PO SCH (08:16)
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
== END 2017-03-19 11:39 | disposition home or self-care (01) | DRG 715 ==
LOC: ED 09:02 → PSYC 09:19
PROVIDERS: ADMIT Psychiatry & Neurology Psychiatry; ATTEND Psychiatry & Neurology Psychiatry
DX: F10.239 Alcohol dependence with withdrawal, unspecified (principal); Z21 Asymptomatic human immunodeficiency virus [HIV] infection status; F11.20 Opioid dependence, uncomplicated; R45.851 Suicidal ideations; W01.0XXA Fall on same level from slipping, tripping and stumbling without subsequent striking against object, initial encounter; F31.9 Bipolar disorder, unspecified; R40.2412 Glasgow coma scale score 13-15, at arrival to emergency department; F60.3 Borderline personality disorder; F15.94 Other stimulant use, unspecified with stimulant-induced mood disorder; F12.10 Cannabis abuse, uncomplicated; F17.210 Nicotine dependence, cigarettes, uncomplicated; F40.10 Social phobia, unspecified; F41.0 Panic disorder [episodic paroxysmal anxiety]; G47.00 Insomnia, unspecified; Z81.8 Family history of other mental and behavioral disorders; Z88.8 Allergy status to other drugs, medicaments and biological substances

== ENCOUNTER 2017-05-18 20:17 | Inpatient (IN) | payer MEDICAID ==
[2017-05-18 20:25] VITALS: BMI 21.9
[2017-05-18 20:55] LABS: BASO # 0.06 K/mm3 (0.0-2.0); BASO % 0.8 % (0.0-3.0); EOS # 0.1 (0.0-0.7); EOS % 1.6 % (1.5-5.0); GRAN # 3.64 (1.4-6.5); GRAN % 51.6 % (50.0-68.0); HEMATOCRIT 50.7 % (42.0-52.0); LYMPH # 2.7 (1.2-3.4); LYMPH % 38.1 % (22.0-35.0); MEAN CELL VOLUME 90.9 fl (80.0-105.0); MEAN CORPUSCULAR HGB CONC 36.3 g/dl (31.0-37.0); MEAN PLATELET VOLUME 9.4 fl (7.0-11.0); MONO # 0.6 (0.1-0.6); MONO % 7.9 % (1.0-6.0); WHITE BLOOD COUNT 7.1 10^3/ul (4.5-11.0)
[2017-05-18 21:14] LABS: URINE BILIRUBIN NEGATIVE (NEGATIVE); URINE BLOOD NEGATIVE (NEGATIVE); URINE GLUCOSE (UA) NEGATIVE (NEGATIVE); URINE KETONE TRACE mg/dL (NEGATIVE); URINE LEUKOCYTE ESTERASE NEGATIVE Leu/uL (NEGATIVE); URINE PROTEIN TRACE mg/dL (<30 mg/dL); URINE UROBILINOGEN 0.2 E.U./dL (<1 E.U./dL)
[2017-05-18 21:20] LABS: ALB/GLOB RATIO 1.1 (1.1-1.8); ALKALINE PHOSPHATASE 67 U/L (38-126); ALT/SGPT 168 U/L (7-56); AST/SGOT 149 U/L (17-59); BILIRUBIN,TOTAL 0.6 mg/dL (0.2-1.3); BLOOD UREA NITROGEN 10 mg/dL (7-21); CARBON DIOXIDE 32 mmol/L (21-33); CHLORIDE 104 mmol/L (98-107); GFR AFRICAN-AMERICAN > 60; GLUCOSE,RANDOM 92 mg/dL (70-110); POTASSIUM 4.3 mmol/L (3.6-5.0); SODIUM 149 mmol/L (132-148); TOTAL PROTEIN 8.9 g/dL (5.8-8.3)
[2017-05-18 21:22] LABS: URINE APPEARANCE CLEAR (CLEAR); URINE COLOR YELLOW (YELLOW)
--- NOTE | 2017-05-18 22:04 | ED PDOC ---
Arrival/HPI - General Historian: Patient - History of Present Illness Symptom Onset: Sudden Symptom Course: Unchanged Activities at Onset: Rest Context: Home - General Chief Complaint: Psychiatric Evaluation Time Seen by Provider: 05/18/17 20:20 - History of Present Illness Narrative History of Present Illness (Text): 05/18/17 22:03 A 26 year old male, whose past medical history includes alcohol abuse and HIV, was brought in by EMS to the emergency department for suicidal ideation and alcohol intoxication. Patient was attempting to kill himself, trying to jump in front of traffic. Patient denies any fever, shortness of breath, headache, dizziness or any other complaints at this time. (Boaz Hicks) Past Medical History - Provider Review Nursing Documentation Reviewed: Yes - Infectious Disease Hx of Infectious Diseases: None - Cardiac Hx Hypertension: No - Pulmonary Hx Tuberculosis: No - Neurological Hx Seizures: Yes (ETOH related) - HEENT Hx HEENT Disorder: No - Renal Hx Renal Disorder: No - Endocrine/Metabolic Hx Endocrine Disorders: No - Hematological/Oncological Hx Cancer: No - Integumentary Hx Dermatological Disorder: No - Musculoskeletal/Rheumatological Hx Falls: No - Gastrointestinal Hx Gastrointestinal Disorders: No - Genitourinary/Gynecological Hx Sexually Transmitted Diseases: No - Psychiatric Hx Anxiety: Yes Hx Bipolar Disorder: Yes Hx Depression: Yes Hx Schizophrenia: Yes Hx Substance Use: Yes - Surgical History Hx Orthopedic Surgery: Yes (Right wrist surgery) Other/Comment: surgery rt wrist 2010 - Anesthesia Hx Anesthesia: Yes Hx Anesthesia Reactions: No Hx Malignant Hyperthermia: No - Suicidal Assessment Feels Threatened In Home Enviroment: No Family/Social History - Physician Review Nursing Documentation Reviewed: Yes Family/Social History: No Known Family HX Smoking Status: Heavy Smoker > 10 Cigarettes Daily Hx Alcohol Use: Yes Hx Substance Use: Yes Substance used: refused to anwer Hx Substance Use Treatment: Yes Allergies/Home Meds Allergies/Adverse Reactions: Allergies haloperidol [From Haldol] Adverse Reaction (Verified 05/19/17 00:56) PAIN muscle cramping, dystonia haloperidol lactate [From Haldol] Adverse Reaction (Verified 05/19/17 00:56) PAIN dystonia as per patient Home Medications: Home Meds Medication Instructions Recorded Confirmed Elviteg/Elis/Emtric/Tenofo Ala 1 each PO DAILY 05/18/17 05/19/17 [Genvoya Tablet] hydrOXYzine HCl [Atarax] 50 mg PO Q8 05/18/17 05/19/17 Review of Systems - Physician Review All systems were reviewed & negative as marked: Yes - Review of Systems Constitutional: absent: Fevers Respiratory: absent: SOB Neurological: absent: Headache, Dizziness Psychiatric: Suicidal Ideation Physical Exam Vital Signs Reviewed: Yes Temperature: Afebrile Blood Pressure: Normal Pulse: Regular Respiratory Rate: Normal Appearance: Positive for: Well-Appearing, Non-Toxic, Comfortable Pain Distress: None Mental Status: Positive for: Alert and Oriented X 3 - Systems Exam Head: Present: Atraumatic, Normocephalic Pupils: Present: PERRL Extroacular Muscles: Present: EOMI Conjunctiva: Present: Normal Mouth: Present: Moist Mucous Membranes Neck: Present: Normal Range of Motion Respiratory/Chest: Present: Clear to Auscultation, Good Air Exchange. No: Respiratory Distress, Accessory Muscle Use Cardiovascular: Present: Regular Rate and Rhythm, Normal S1, S2. No: Murmurs Abdomen: Present: Normal Bowel Sounds. No: Tenderness, Distention, Peritoneal Signs Back: Present: Normal Inspection Upper Extremity: Present: Normal Inspection. No: Cyanosis, Edema Lower Extremity: Present: Normal Inspection. No: Edema Neurological: Present: GCS=15, CN II-XII Intact, Speech Normal Skin: Present: Warm, Dry, Normal Color. No: Rashes Psychiatric: Present: Alert, Oriented x 3, Suicidal Ideation Vital Signs Temp Pulse Resp BP Pulse Ox 05/18/17 21:29 98.0 F 85 18 133/75 98 Medical Decision Making - Lab Interpretations I have reviewed the lab results: Yes - EKG Interpretation Interpreted by ED Physician: Yes Type: 12 lead EKG ED Course and Treatment: 05/19/17 14:29 -I spoke to the psychiatrist since the patient admitted as psychiatric complaint , called and spoke to Dr. Hand regarding about the abnormal chest xray with ill defined 3cm rounded opacity at left lung base which I suggest to order pa and lateral chest to rule out any infiltrate or she should consult with the hospitalist regarding about the proper and standard medical care for the patient. (Alden Clement) 05/18/17 22:00 Impression: A 26 year old male with alcohol intoxication and suicidal ideation. Plan: -- EKG -- chest xray -- labs -- Urinalysis -- Reassess and disposition Prior Visits: Notes and results from previous visits were reviewed. Patient last reported to the emergency department on 05/07/17 for evaluation of alcohol withdrawal, feeling anxious, shaky and sweaty. Progress Notes: EKG: Ordered, reviewed, and independently interpreted the EKG. Rate : 64 BPM Rhythm : NSR Interpretation : Nonspecific ST segment changes, chest xray: No active disease, interpreted by me. (Boaz Hicks) - Lab Interpretations Lab Results: 05/18/17 20:44 05/18/17 20:44 Lab Results 05/18/17 21:05: Urine Opiates Screen Negative, Urine Methadone Screen Negative, Ur Barbiturates Screen Negative, Ur Phencyclidine Scrn Negative, Ur Amphetamines Screen Negative, U Benzodiazepines Scrn Negative, U Oth Cocaine Metabols Negative, U Cannabinoids Screen Positive H 05/18/17 21:05: Urine Color Yellow, Urine Appearance Clear, Urine pH 6.0, Ur Specific [place] 1.020, Urine Protein Trace H, Urine Glucose (UA) Negative, Urine Ketones Trace H, Urine Blood Negative, Urine Nitrate Negative, Urine Bilirubin Negative, Urine Urobilinogen 0.2, Ur Leukocyte Esterase Negative, Urine RBC 0 - 2, Urine WBC 0 - 2, Ur Epithelial Cells 0 - 2 05/18/17 20:44: Alcohol, Quantitative 283 H 05/18/17 20:44: Salicylates < 1 L, Acetaminophen < 10.0 L 05/18/17 20:44: Sodium 149 H, Potassium 4.3, Chloride 104, Carbon Dioxide 32, Anion Gap 17, BUN 10, Creatinine 0.9, Est GFR ( Amer) > 60, Est GFR (Non- Af Amer) > 60, Random Glucose 92, Calcium 9.0, Total Bilirubin 0.6, AST 149 H D , ALT 168 H, Alkaline Phosphatase 67, Total Protein 8.9 H, Albumin 4.6, Globulin 4.3, Albumin/Globulin Ratio 1.1 05/18/17 20:44: WBC 7.1, RBC 5.58, Hgb 18.4 H*, Hct 50.7, MCV 90.9, MCH 33.0, MCHC 36.3, RDW 13.0, Plt Count 325, MPV 9.4, Gran % 51.6, Lymph % (Auto) 38.1 H , [place] % (Auto) 7.9 H, Eos % (Auto) 1.6, Baso % (Auto) 0.8, Gran # 3.64, Lymph # 2.7, [place] # 0.6, Eos # 0.1, Baso # 0.06 - RAD Interpretation Radiology Orders: 05/18/17 20:34 CHEST PORTABLE [RAD] Stat - Medication Orders Current Medication Orders: Aripiprazole (Abilify) 5 mg PO HS [facility] Last Admin: 05/19/17 21:32 Dose: 5 mg Behavioural Document 05/19/17 21:32 KM (Rec: 05/19/17 21:32 KM [id number]) Maintenance Maintenance Dose Yes Re-Assess: Reassess Psych Meds Document 05/19/17 22:32 KM (Rec: 05/19/17 23:34 KM [id number]) Reassess Psych Med Effective Folic Acid (Folic Acid) 1 mg PO DAILY [facility] Gabapentin (Neurontin) 200 mg PO TID [facility] PRN Reason: Protocol Last Admin: 05/19/17 18:30 Dose: 200 mg Behavioural Document 05/19/17 18:30 TW (Rec: 05/19/17 18:32 TW [id number]) Maintenance Maintenance Dose Yes Re-Assess: Reassess Psych Meds Document 05/19/17 19:30 KM (Rec: 05/19/17 20:43 KM [id number]) Reassess Psych Med Effective Lorazepam (Ativan) 1 mg PO Q6 [facility] PRN Reason: Protocol Last Admin: 05/19/17 23:36 Dose: 1 mg Behavioural Document 05/19/17 23:36 KM (Rec: 05/19/17 23:38 KM [id number]) Maintenance Maintenance Dose Yes Mirtazapine (Remeron) 15 mg PO HS [facility] Last Admin: 05/19/17 21:32 Dose: Not Given Non-Admin Reason: Patient Refused Multivitamins (Thera Tab) 1 tab PO 0800 [facility] Last Admin: 05/19/17 08:12 Dose: 1 tab Nicotine (Nicoderm Cq) 1 patch TD DAILY [facility] Last Admin: 05/19/17 11:51 Dose: Not Given Non-Admin Reason: Patient Refused Non-Formulary Medication (Elviteg/Elis/Emtric/Tenofo Ala [Genvoya Tablet]) 1 each PO DAILY [facility] Thiamine HCl (Vitamin B1 Tab) 100 mg PO DAILY TONI Last Admin: 05/19/17 08:12 Dose: 100 mg Zaleplon (Sonata) 5 mg PO HS PRN PRN Reason: Insomnia Last Admin: 05/19/17 21:32 Dose: 5 mg Discontinued Medications Chlordiazepoxide (Librium) 25 mg PO STAT STA PRN Reason: Protocol Stop: 05/18/17 23:17 Last Admin: 05/18/17 23:28 Dose: 25 mg Re-Assess: Reassess Psych Meds Document 05/19/17 07:57 TW (Rec: 05/19/17 07:57 TW [id number]) Reassess Psych Med Effective Lorazepam (Ativan) 1 mg PO ONCE ONE PRN Reason: Protocol Stop: 05/19/17 00:15 Last Admin: 05/19/17 00:24 Dose: 1 mg Behavioural Document 05/19/17 00:24 KM (Rec: 05/19/17 00:24 KM [id number]) Maintenance Maintenance Dose Yes Re-Assess: Reassess Psych Meds Document 05/19/17 01:24 KM (Rec: 05/19/17 06:05 KM [id number]) Reassess Psych Med Effective - Scribe Statement The provider has reviewed the documentation as recorded by the Scribe - Scribe Statement Lizette Aguirre Provider Scribe Attestation: All medical record entries made by the Scribe were at my direction and personally dictated by me. I have reviewed the chart and agree that the record accurately reflects my personal performance of the history, physical exam, medical decision making, and the department course for this patient. I have also personally directed, reviewed, and agree with the discharge instructions and disposition. (Boaz Hicks) Disposition/Present on Arrival - Present on Arrival Any Indicators Present on Arrival: No History of DVT/PE: No History of Uncontrolled Diabetes: No Urinary Catheter: No History of Decub. Ulcer: No History Surgical Site Infection Following: None - Disposition Have Diagnosis and Disposition been Completed?: Yes Disposition Time: 23:00 - Disposition Diagnosis: Alcohol abuse, Schizoaffective disorder Disposition: HOSPITALIZED Condition: FAIR
[2017-05-18 22:09] LABS: URINE EPITHELIAL CELLS 0 - 2 /hpf (0-5); URINE RBC 0 - 2 /hpf (0-2); URINE WBC 0 - 2 /hpf (0-6)
--- NOTE | 2017-05-19 05:54 | PCM.BM ---
Treatment Plan Problems - Problems identified on initial assessmt substance abuse Date Initiated: 05/18/17 Time Initiated: 22:25 Assessment reference: NA Status: Active Priority: 1 Treatment assets and liabiliti Patient Assests: self-reliant, ADL independent, negotiates basic needs, good interpersonal skills Patient Liabilities: live alone, poor support system, substance abuse, medical problems - Milieu Protocol Maintain good personal hygiene: daily Encourage regular showers, daily Remind patient to perform daily oral care, daily Assist patient to perform ADL's Maintain personal safety: daily Educate patient to report safety concerns to staff, daily Monitor environment for contraband/sharps Medication safety: Monitor for expected outcome, potential side effects: daily, Assess barriers to learning: daily, Assess readiness for medication education: daily Milieu Narrative: * Group, milieu and supportive tx * Remeron 15 mg HS for depression * Abilify 5 mg PO HS to augment remeron for depression * Neurontin 200 mg PO TID for anxiety and mood control, off label * Sonata 5 mg HS prn: insomnia * Ativan 1 mg q6 for alcohol withdrawal, taper as tolerated * Awaiting medical consult * Vitals reviewed and noted below: Selected Entries 04/23/17 05/18/17 07:35 21:29 Temperature 97.4 F L 98.0 F Pulse Rate 64 85 Respiratory 20 18 Rate Blood Pressure 110/55 L 133/75 O2 Sat by Pulse 98 Oximetry ER LABS AND STUDIES 05/18/17 21:05: Urine Color Yellow, Urine Appearance Clear, Urine pH 6.0, Ur Specific [place] 1.020, Urine Protein Trace H, Urine Glucose (UA) Negative, Urine Ketones Trace H, Urine Blood Negative, Urine Nitrate Negative, Urine Bilirubin Negative, Urine Urobilinogen 0.2, Ur Leukocyte Esterase Negative, Urine RBC Pending, Urine WBC Pending 05/18/17 20:44: Alcohol, Quantitative 283 H 05/18/17 20:44: Salicylates < 1 L, Acetaminophen < 10.0 L 05/18/17 20:44: Sodium 149 H, Potassium 4.3, Chloride 104, Carbon Dioxide 32, Anion Gap 17, BUN 10, Creatinine 0.9, Est GFR ( Amer) > 60, Est GFR (Non- Af Amer) > 60, Random Glucose 92, Calcium 9.0, Total Bilirubin 0.6, AST 149 H D , ALT 168 H, Alkaline Phosphatase 67, Total Protein 8.9 H, Albumin 4.6, Globulin 4.3, Albumin/Globulin Ratio 1.1 05/18/17 20:44: WBC 7.1, RBC 5.58, Hgb 18.4 H*, Hct 50.7, MCV 90.9, MCH 33.0, MCHC 36.3, RDW 13.0, Plt Count 325, MPV 9.4, Gran % 51.6, Lymph % (Auto) 38.1 H , [place] % (Auto) 7.9 H, Eos % (Auto) 1.6, Baso % (Auto) 0.8, Gran # 3.64, Lymph # 2.7, [place] # 0.6, Eos # 0.1, Baso # 0.06 EKG: Rate : 64 BPM Rhythm : NSR Interpretation : Nonspecific ST segment changes, chest xray: No active disease Family Contact Family involvement: No known Family/SO Family contact: Patient declines to allow family contact at present Discharge/Continuing Care - Education Needs Education Needs: Patient Medication, Patient Diagnosis/Disease Process, Patient Coping Skills, Patient Anger Management skills, Patient Activities of Daily Living, Patient Pain - Discharge Discharge Criteria: Free of Suicidal thoughts, Normal sleep pattern - Treatment Team Participation Patient/Family/SO Statement: * Group, milieu and supportive tx * Remeron 15 mg HS for depression * Abilify 5 mg PO HS to augment remeron for depression * Neurontin 200 mg PO TID for anxiety and mood control, off label * Sonata 5 mg HS prn: insomnia * Ativan 1 mg q6 for alcohol withdrawal, taper as tolerated * Awaiting medical consult * Vitals reviewed and noted below: Selected Entries 04/23/17 05/18/17 07:35 21:29 Temperature 97.4 F L 98.0 F Pulse Rate 64 85 Respiratory 20 18 Rate Blood Pressure 110/55 L 133/75 O2 Sat by Pulse 98 Oximetry ER LABS AND STUDIES 05/18/17 21:05: Urine Color Yellow, Urine Appearance Clear, Urine pH 6.0, Ur Specific [place] 1.020, Urine Protein Trace H, Urine Glucose (UA) Negative, Urine Ketones Trace H, Urine Blood Negative, Urine Nitrate Negative, Urine Bilirubin Negative, Urine Urobilinogen 0.2, Ur Leukocyte Esterase Negative, Urine RBC Pending, Urine WBC Pending 05/18/17 20:44: Alcohol, Quantitative 283 H 05/18/17 20:44: Salicylates < 1 L, Acetaminophen < 10.0 L 05/18/17 20:44: Sodium 149 H, Potassium 4.3, Chloride 104, Carbon Dioxide 32, Anion Gap 17, BUN 10, Creatinine 0.9, Est GFR ( Amer) > 60, Est GFR (Non- Af Amer) > 60, Random Glucose 92, Calcium 9.0, Total Bilirubin 0.6, AST 149 H D , ALT 168 H, Alkaline Phosphatase 67, Total Protein 8.9 H, Albumin 4.6, Globulin 4.3, Albumin/Globulin Ratio 1.1 05/18/17 20:44: WBC 7.1, RBC 5.58, Hgb 18.4 H*, Hct 50.7, MCV 90.9, MCH 33.0, MCHC 36.3, RDW 13.0, Plt Count 325, MPV 9.4, Gran % 51.6, Lymph % (Auto) 38.1 H , [place] % (Auto) 7.9 H, Eos % (Auto) 1.6, Baso % (Auto) 0.8, Gran # 3.64, Lymph # 2.7, [place] # 0.6, Eos # 0.1, Baso # 0.06 EKG: Rate : 64 BPM Rhythm : NSR Interpretation : Nonspecific ST segment changes, chest xray: No active disease
[2017-05-19 07:34] LABS: CHOLESTEROL 166 mg/dL (130-200)
[2017-05-19] MEDS: Multivitamin Therapeutic Tab PO SCH (08:12)
--- NOTE | 2017-05-19 08:45 | CARD ---
APPROVED REPORT EKG Measurement Heart [id number] <Conclusion> Normal sinus rhythm with sinus arrhythmia RSR' or QR pattern in V1 suggests right ventricular conduction delay Normal ECG
--- NOTE | 2017-05-19 09:20 | PCM.PSYCH ---
Initial Psychiatric Evaluation - Initial Psychiatric Evaluation Type of Admission: Voluntary Legal Status: Capacity Chief Complaint (in patient's own words): depressed History of Present Illness and Precipitating Events: Patient is a single HIV+ 26 year old male with a psychiatric history of bipolar disorder, borderline personality disorder, panic disorder, alcohol dependency, stimulant abuse, numerous admissions-most recently at [facility] 04/19/17-04/23, poor compliance with aftercare recommendations and medications who was brought in by EMS to the emergency department for suicidal ideation and alcohol intoxication. ER report indicates that patient was trying to jump in front of traffic to kill himself. I reviewed prior records, notes on the unit and interviewed patient at bedside. He is alert and well oriented to month, year, location and circumstances. Endorses symptoms of depression and hopelessness, anhedonia, low mood and energy , insomnia in the context of continued alcohol use and noncompliance with medications s/p discharge from [facility]. Patient was unable to quantify the amount of alcohol that he has been drinking since discharge however reports daily use. Patient also has been smoking marijuana approximately 2 to 3 times a week. Thought process is clear and coherent and responses are relevant to questioning. He denies hallucinations and no longer has thoughts to harm himself or others. There were no behavioral issues on the unit overnight PSYCHIATRIC HISTORY Patient reports greater than Saturday prior psychiatric hospital stations. Most recently he was hospitalized at [facility] 04/19/17-04/23/17 s/p 3 self- inflicted lacerations to his left arm after his girlfriend broke up with him. Patient was given diagnosis of Schizoaffective disorder, Borderline Personality DO, Alcohol use disorder, severe. He was discharged on Abilify 10 mg PO QPM Wellbutrin XL 150 mg PO DAILY Neurontin 400 mg PO TID Atarax 50 mg PO BID PRN Patient was also hospitalized at [facility] 03/13/17-03/19/17. He was discharged on Neurontin 600 mg PO QID Remeron 30 mg PO HS Patient has a history of multiple suicide attempts and suicidal gestures. Most recently patient inflicted three lacerations on his arms after his girlfriend broke up with him in early April SOCIAL HISTORY Patient was born and raised in [place]. He is single and resides with his grandmother. He has no children. Patient graduated high school and is currently unemployed. Patient reports that he has been a dependent on alcohol for last two years~last drink was yesterday. He is unable to quantify his recent use. Patient reports a history of tremors and withdrawal seizures, most recently a few months ago. Patient also has a history of marijuana use, patient smokes marijuana approximately 2 to 3 times weekly. Prior records indicate that he has a history of stimulant abuse. Patient also reports that he smokes half a pack of cigarettes daily. Patient was counseled about the morbidity and mortality risks of continued tobacco use and accepts nicotine patch when offered Current Medications: Active Medications Generic Name Dose Route Start Last Admin Trade Name Freq PRN Reason Stop Dose Admin Citalopram Hydrobromide 10 mg 05/19/17 08:00 Celexa PO DAILY TONI Lorazepam 1 mg 05/19/17 06:00 Ativan PO Q6 [facility] Protocol Multivitamins 1 tab 05/19/17 08:00 Thera Tab PO 0800 TONI Thiamine HCl 100 mg 05/19/17 08:00 Vitamin B1 Tab PO DAILY TONI Zaleplon 5 mg 05/19/17 00:14 05/19/17 00:24 Sonata PO 5 mg HS PRN Administration Insomnia Past Psychiatric History - Past Psychiatric History Pertinent Medical Hx (Current Medical&Sleep Prob, Allergies): Allergies Allergy/AdvReac Type Severity Reaction Status Date / Time haloperidol [From Haldol] AdvReac PAIN Verified 05/19/17 00:56 haloperidol lactate AdvReac PAIN Verified 05/19/17 00:56 [From Haldol] Elviteg/Elis/Emtric/Tenofo Ala [Genvoya Tablet] 1 each PO DAILY 05/18/17 hydrOXYzine HCl [Atarax] 50 mg PO Q8 05/18/17 Mental Status Examination - Affect Affect: Constricted - Motor Activity Motor Activity: Calm - Reliability in Providing Information Reliability in Providing Information: Fair - Speech Speech: Organized - Mood Mood: Depressed, Anxious - Formal Thought Process Formal Thought Process: No Impairment - Obsessions/Compulsions Obsessions: No Compulsions: No - Cognitive Functions Orientation: Person, Place, Situation Sensorium: Alert Attention/Concentration: Attentive Abstract Thinking: [place] Estimate of Intelligence: Average Judgement: Imparied, as evidence by: Poor judgement, Imparied, as evidence by: Lack of insight into illness - Risk Risk: Suicidal DSM 5 DX - DSM 5 DSM 5 Diagnosis: Major Depression, Severe, recurrent Borderline personality disorder Alcohol dependence, Severe MJA Use Disorder Contribution of substance induced mood disorder Panic Disorder by hx Stimulant abuse by hx - Recommended/Plan of Treatment Treatment Recommendations and Plan of Treatment: * Group, milieu and supportive tx * Remeron 15 mg HS for depression * Abilify 5 mg PO HS to augment remeron for depression * Neurontin 200 mg PO TID for anxiety and mood control, off label * Sonata 5 mg HS prn: insomnia * Ativan 1 mg q6 for alcohol withdrawal, taper as tolerated * Awaiting medical consult * Vitals reviewed and noted below: Selected Entries 04/23/17 05/18/17 07:35 21:29 Temperature 97.4 F L 98.0 F Pulse Rate 64 85 Respiratory 20 18 Rate Blood Pressure 110/55 L 133/75 O2 Sat by Pulse 98 Oximetry ER LABS AND STUDIES 05/18/17 21:05: Urine Color Yellow, Urine Appearance Clear, Urine pH 6.0, Ur Specific [place] 1.020, Urine Protein Trace H, Urine Glucose (UA) Negative, Urine Ketones Trace H, Urine Blood Negative, Urine Nitrate Negative, Urine Bilirubin Negative, Urine Urobilinogen 0.2, Ur Leukocyte Esterase Negative, Urine RBC Pending, Urine WBC Pending 05/18/17 20:44: Alcohol, Quantitative 283 H 05/18/17 20:44: Salicylates < 1 L, Acetaminophen < 10.0 L 05/18/17 20:44: Sodium 149 H, Potassium 4.3, Chloride 104, Carbon Dioxide 32, Anion Gap 17, BUN 10, Creatinine 0.9, Est GFR ( Amer) > 60, Est GFR (Non- Af Amer) > 60, Random Glucose 92, Calcium 9.0, Total Bilirubin 0.6, AST 149 H D , ALT 168 H, Alkaline Phosphatase 67, Total Protein 8.9 H, Albumin 4.6, Globulin 4.3, Albumin/Globulin Ratio 1.1 05/18/17 20:44: WBC 7.1, RBC 5.58, Hgb 18.4 H*, Hct 50.7, MCV 90.9, MCH 33.0, MCHC 36.3, RDW 13.0, Plt Count 325, MPV 9.4, Gran % 51.6, Lymph % (Auto) 38.1 H , [place] % (Auto) 7.9 H, Eos % (Auto) 1.6, Baso % (Auto) 0.8, Gran # 3.64, Lymph # 2.7, [place] # 0.6, Eos # 0.1, Baso # 0.06 EKG: Rate : 64 BPM Rhythm : NSR Interpretation : Nonspecific ST segment changes, chest xray: No active disease FLOOR LABS 05/19/17 05/19/17 06:40 06:40 Triglycerides 56 Cholesterol 166 LDL Cholesterol Direct 78 HDL Cholesterol 74 H TSH 3rd Generation 1.62 - Smoking Cessation Smoking Cessation Initiated: Yes
--- NOTE | 2017-05-19 10:11 | RAD ---
HISTORY: pes COMPARISON: No prior. FINDINGS: LUNGS: Ill-defined roughly 3 cm rounded opacity at left lung base. Possible nipple shadow. No corresponding opacity at right lung base. Recommend follow-up PA and lateral chest radiographs to exclude developing infiltrate. No other abnormal pulmonary opacity identified. . PLEURA: No significant pleural effusion identified, no pneumothorax apparent. CARDIOVASCULAR: Normal. OSSEOUS STRUCTURES: No significant abnormalities. VISUALIZED UPPER ABDOMEN: Normal. OTHER FINDINGS: None. IMPRESSION: Ill-defined 3 cm rounded opacity at left lung base. Recommend follow-up PA and lateral chest radiography to exclude developing pulmonary infiltrate.
--- NOTE | 2017-05-19 15:44 | RAD ---
HISTORY: r/o infiltrate COMPARISON: 05/18/2017 TECHNIQUE: Chest PA and lateral FINDINGS: LUNGS: No active pulmonary disease. PLEURA: No significant pleural effusion identified. No pneumothorax apparent. CARDIOVASCULAR: Normal. OSSEOUS STRUCTURES: No significant abnormalities. VISUALIZED UPPER ABDOMEN: Normal. OTHER FINDINGS: None. IMPRESSION: No active disease.
--- NOTE | 2017-05-19 16:20 | CP.PCM.CON ---
<DONELL TORRES - Last Filed: 05/19/17 16:10> History of Present Illness - History of Present Illness History of Present Illness: CC: Suicidal ideation, depression HPI: Pt is a 26 y/o male with pmh of congenital HIV and depression presents to [facility] due to suicidal ideation. Pt states that had planned to run in the streets to hurt himself. Pt denied any homicidal thoughts. Pt states that he has be depressed for years with several admissions. Pt also admits to excessive alcohol use prior to admission. He states that he drinks at least 6-8 beers per day and occasionally drinks liquor as well, often to the point of passing out. Today, patientPt states that HIV was present at and currently takes Genvoya. He states that the last viral load was undetectable, but cannot remember his CD4 count. Prior to admission, pt states that he's been nauseous but has not vomitted. Pt currently still feels nauseous and feels as if he is withdrawing from alcohol as he is experiencing hot and cold intolerance and some tremors. Pt denies CP, SOB, diarrhea, constipation, abdominal pain, dysuria , fatigue, dizziness and ALFARO. PMHx: Congential HIV, Depression SUrgery: denied FHx: non-contributory Allergies: Haldol (dystonia) Social history: 1/2 pack/day, heavy EtOH use as per HPI, marijuana 2xweek; lives at home with grandmother Medications: Hydoxyyzine 50 mg PO q8h, Genvoya 1 tab PO daily PMD: Eric Review of Systems - Review of Systems All systems: reviewed and no additional remarkable complaints except (other than what is stated in HPI.) Past Patient History - Infectious Disease Hx of Infectious Diseases: None - Past Medical History & Family History Past Medical History?: Yes - Past Social History Smoking Status: Heavy Smoker > 10 Cigarettes Daily - CARDIAC Hx Cardiac Disorders: No Hx Hypertension: No - PULMONARY Hx Asthma: Yes Hx Tuberculosis: No - NEUROLOGICAL HX Cerebrovascular Accident: No Hx Seizures: Yes (ETOH related) - HEENT Hx HEENT Problems: No - RENAL Hx Chronic Kidney Disease: No - ENDOCRINE/METABOLIC Hx Endocrine Disorders: No - HEMATOLOGICAL/ONCOLOGICAL Hx Cancer: No Hx Human Immunodeficiency Virus (HIV): Yes - INTEGUMENTARY Hx Dermatological Problems: No - MUSCULOSKELETAL/RHEUMATOLOGICAL Hx Falls: No - GASTROINTESTINAL Hx Gastrointestinal Disorders: No - GENITOURINARY/GYNECOLOGICAL Hx Sexually Transmitted Disorders: No - PSYCHIATRIC Hx Schizophrenia: Yes Hx Substance Use: Yes - SURGICAL HISTORY Hx Orthopedic Surgery: Yes (Right wrist surgery) Other/Comment: surgery rt wrist 2010 - ANESTHESIA Hx Anesthesia: Yes Hx Anesthesia Reactions: No Hx Malignant Hyperthermia: No Meds Allergies/Adverse Reactions: Allergies Allergy/AdvReac Type Severity Reaction Status Date / Time haloperidol [From Haldol] AdvReac PAIN Verified 05/19/17 00:56 haloperidol lactate AdvReac PAIN Verified 05/19/17 00:56 [From Haldol] - Medications Medications: Current Medications Aripiprazole (Abilify) 5 mg PO HS [facility] Folic Acid (Folic Acid) 1 mg PO DAILY [facility] Gabapentin (Neurontin) 200 mg PO TID TONI PRN Reason: Protocol Last Admin: 05/19/17 08:12 Dose: 200 mg Lorazepam (Ativan) 1 mg PO Q6 TONI PRN Reason: Protocol Last Admin: 05/19/17 11:50 Dose: 1 mg Mirtazapine (Remeron) 15 mg PO HS [facility] Multivitamins (Thera Tab) 1 tab PO 0800 [facility] Last Admin: 05/19/17 08:12 Dose: 1 tab Nicotine (Nicoderm Cq) 1 patch TD DAILY [facility] Last Admin: 05/19/17 11:51 Dose: Not Given Non-Formulary Medication (Elviteg/Elis/Emtric/Tenofo Ala [Genvoya Tablet]) 1 each PO DAILY [facility] Thiamine HCl (Vitamin B1 Tab) 100 mg PO DAILY [facility] Last Admin: 05/19/17 08:12 Dose: 100 mg Zaleplon (Sonata) 5 mg PO HS PRN PRN Reason: Insomnia Last Admin: 05/19/17 00:24 Dose: 5 mg Physical Exam - Constitutional Appears: No Acute Distress - Head Exam Head Exam: ATRAUMATIC, NORMOCEPHALIC - Eye Exam Eye Exam: EOMI, PERRL - ENT Exam ENT Exam: Mucous Membranes Dry - Neck Exam Neck exam: Positive for: Full Rom. Negative for: Lymphadenopathy, Tenderness, Thyromegaly - Respiratory Exam Respiratory Exam: Clear to Auscultation Bilateral. absent: Rales, Rhonchi, Wheezes - Cardiovascular Exam Cardiovascular Exam: RRR, +S1, +S2. absent: Diastolic murmur, Gallop, Rubs, Systolic Murmur - GI/Abdominal Exam GI & Abdominal Exam: Soft. absent: Distended, Guarding, Organomegaly, Rebound, Tenderness - Extremities Exam Extremities exam: Positive for: normal inspection - Neurological Exam Neurological exam: Alert, Oriented x3 - Psychiatric Exam Psychiatric exam: Anxious, Normal Affect - Skin Skin Exam: Dry, Intact, Normal Color, Warm Results - Vital Signs Recent Vital Signs: Last Vital Signs Temp 97.9 F 05/19/17 07:00 Pulse 78 05/19/17 07:00 Resp 20 05/19/17 07:00 BP 114/83 05/19/17 07:00 Pulse Ox 98 05/18/17 21:29 - Labs Result Diagrams: 05/18/17 20:44 05/18/17 20:44 Labs: Laboratory Results - last 24 hr 05/19/17 05/19/17 06:40 06:40 Triglycerides 56 Cholesterol 166 LDL Cholesterol Direct 78 HDL Cholesterol 74 H TSH 3rd Generation 1.62 Assessment & Plan - Assessment and Plan (Free Text) Assessment: 26 yo male with PMHx of congenital HIV and depression admitted for suicidal ideation. Medicine was consulted for patients history of HIV and dehydration. Plan: 1. Suicidal Ideation/Depression - TSH WNL - Management per psychiatry 2. HIV - Continue home med, Genvoya - F/u CD4 count, viral load - ID consulted 3. Dehydration - Hgb 18.4, Na 149 Results likely due to dehydration, will repeat labs - F/u Mg, Phos - Promote increased PO fluid intake 4. Multisubstance abuse - Counseled patient on risks of alcohol and ilicit drug use and advised cessation 5. Transaminitis - Increased LFT's likely due to alcohol use - EtOH level 283 - Tylenol and ASA level negative - Lipid panel WNL Pt was seen and discussed in detail with Dr. Barreto. Elmer Torres, PGY1 <Vijay Barreto - Last Filed: 05/19/17 18:27> Meds - Medications Medications: Current Medications Aripiprazole (Abilify) 5 mg PO HS TONI Folic Acid (Folic Acid) 1 mg PO DAILY TONI Gabapentin (Neurontin) 200 mg PO TID TONI PRN Reason: Protocol Last Admin: 05/19/17 08:12 Dose: 200 mg Lorazepam (Ativan) 1 mg PO Q6 TONI PRN Reason: Protocol Last Admin: 05/19/17 11:50 Dose: 1 mg Mirtazapine (Remeron) 15 mg PO HS TONI Multivitamins (Thera Tab) 1 tab PO 0800 TONI Last Admin: 05/19/17 08:12 Dose: 1 tab Nicotine (Nicoderm Cq) 1 patch TD DAILY TONI Last Admin: 05/19/17 11:51 Dose: Not Given Non-Formulary Medication (Elviteg/Elis/Emtric/Tenofo Ala [Genvoya Tablet]) 1 each PO DAILY [facility] Thiamine HCl (Vitamin B1 Tab) 100 mg PO DAILY TONI Last Admin: 05/19/17 08:12 Dose: 100 mg Zaleplon (Sonata) 5 mg PO HS PRN PRN Reason: Insomnia Last Admin: 05/19/17 00:24 Dose: 5 mg Results - Vital Signs Recent Vital Signs: Last Vital Signs Temp 97.9 F 05/19/17 07:00 Pulse 75 05/19/17 16:00 Resp 20 05/19/17 07:00 BP 123/84 05/19/17 16:00 Pulse Ox 98 05/18/17 21:29 - Labs Result Diagrams: 05/18/17 20:44 05/18/17 20:44 Labs: Laboratory Results - last 24 hr 05/19/17 05/19/17 06:40 06:40 Triglycerides 56 Cholesterol 166 LDL Cholesterol Direct 78 HDL Cholesterol 74 H TSH 3rd Generation 1.62 Attending/Attestation - Attestation I have personally seen and examined this patient.: Yes I have fully participated in the care of the patient.: Yes I have reviewed all pertinent clinical information: Yes Notes (Text): I have seen and examined the patient at bedside. Agree with the above note with the following additions/ exceptions: Briefly this is 26 year old male with history of congenital HIV, tobacco use, alcohol abuse, marijuana use and depression who presented with suicidal ideation. He reports that he had nausea and he was not able to drink or eat anything yesterday. Denies any complaints today. He does not remember his cd4 count and viral load. Compliance with genvoya is questionable. He did not bring medicine to the hospital and states that no one can bring HIV med from home. Will consult ID. Labs reviewed. He had hemoconcentration, hypernatremia, transaminitis and ketonuria. Will repeat labs today. Hep panel was recently done and it was negative. Counselling provided regarding tobacco, alcohol and polysubstance abuse. Upon discharge patient will follow up with Dr Reyes. Dr Vijay Barreto
--- NOTE | 2017-05-19 23:17 | CON ---
DATE: 05/19/2017 The patient seen in the psychiatric floor. CHIEF COMPLAINT: Positive HIV. HISTORY OF PRESENT ILLNESS: This is a 26-year-old who was born with HIV and he has history of depression and suicidal ideations, history of schizophrenia and smoker who is now admitted to the psych floor with diagnosis of suicidal ideation. Infectious disease consultation requested for his HIV medications. REVIEW OF SYSTEMS: Reveals there is no fever, no chills. No nausea. No vomiting. He tolerated his medications. He was followed by doctor in [facility] and he states his T-cells and viral load are acceptable although, he does not know what they are. PAST MEDICAL HISTORY: Significant for positive HIV since , depression, suicidal, smoker, schizophrenia. PAST SURGICAL HISTORY: Noncontributory. ALLERGIES: THE PATIENT IS ALLERGIC TO HALDOL AND HALOPERIDOL. MEDICATIONS: His HIV medications include Genvoya. PHYSICAL EXAMINATION: GENERAL: He is in bed, in no acute distress. VITAL SIGNS: Temperature 98, blood pressure 130/70, respiratory rate 18 and heart rate 80. HEENT: Unremarkable. NECK: Supple. LUNGS: Has decreased breath sounds. HEART: Normal S1 and S2. ABDOMEN: Soft and nontender. LABORATORY DATA: Reveals his white count is 7; however, his hemoglobin is 18.4 with hematocrit 50, MCV of 90. The patient has 38% lymphocytosis. Chemistry reveals sodium is 149. LFT's are elevated with normal alk phos and urinalysis was noted. Toxicology was noted. Alcohol level of 283. Positive cannabinoids. Microbiology not available. The patient had a chest x-ray, which was reported to be negative. ASSESSMENT AND PLAN: This is a 26-year-old male with human immunodeficiency virus since , in psychiatry floor. His human immunodeficiency virus recommend continuing Genvoya, have hepatitis workup and should also have hematology evaluation because hemoglobin of 18 with 38% lymphocytosis. Although, the patient is a smoker. Degree of erythrocytosis is not consistent with smoking. I have explained that to him. He will follow up with his HIV Dr. in the [place]. Roby Montana MD [facility] # [id number]
--- NOTE | 2017-05-20 07:38 | CARD ---
APPROVED REPORT EKG Measurement Heart [id number] <Conclusion> Normal sinus rhythm with sinus arrhythmia RVCD No change
[2017-05-20] MEDS: Multivitamin Therapeutic Tab PO SCH (07:59)
[2017-05-20] MEDS ORDERED: [UNRECOGNIZED DRUG - OTHER] PO SCH (08:00)
[2017-05-20] MEDS: [UNRECOGNIZED DRUG - OTHER] PO SCH (08:03)
[2017-05-20 08:06] LABS: HEMATOCRIT 48.7 % (42.0-52.0); MEAN CELL VOLUME 92.1 fl (80.0-105.0); MEAN CORPUSCULAR HEMOGLOBIN 32.7 pg (25.0-35.0); MEAN CORPUSCULAR HGB CONC 35.5 g/dl (31.0-37.0); MEAN PLATELET VOLUME 9.9 fl (7.0-11.0); WHITE BLOOD COUNT 5.6 10^3/ul (4.5-11.0)
[2017-05-20 08:10] LABS: ALB/GLOB RATIO 1.1 (1.1-1.8); ALKALINE PHOSPHATASE 61 U/L (38-126); ALT/SGPT 154 U/L (7-56); AST/SGOT 109 U/L (17-59); BILIRUBIN,TOTAL 1.6 mg/dL (0.2-1.3); BLOOD UREA NITROGEN 10 mg/dL (7-21); CALCIUM 9.5 mg/dL (8.4-10.5); CARBON DIOXIDE 30 mmol/L (21-33); CHLORIDE 101 mmol/L (98-107); GFR AFRICAN-AMERICAN > 60; GLUCOSE,RANDOM 98 mg/dL (70-110); MAGNESIUM 1.9 mg/dL (1.7-2.2); PHOSPHOROUS 3.6 mg/dL (2.5-4.5); POTASSIUM 4.1 mmol/L (3.6-5.0); SODIUM 141 mmol/L (132-148); TOTAL PROTEIN 8.7 g/dL (5.8-8.3)
--- NOTE | 2017-05-20 13:01 | PCM.BM ---
Treatment Plan Problems - Problems identified on initial assessmt substance abuse Date Initiated: 05/18/17 Time Initiated: 22:25 Date resolved: 05/20/17 Assessment reference: NA Status: Active Priority: 5 Depression Date Initiated: 05/20/17 Time Initiated: 13:01 Assessment reference: NA Status: Active Priority: 1 Ineffective Coping Date Initiated: 05/20/17 Time Initiated: 13:01 Assessment reference: NA Status: Active Priority: 2 Anxiety Date Initiated: 05/20/17 Time Initiated: 13:01 Assessment reference: NA Status: Active Priority: 3 Medication Nonadherence Date Initiated: 05/20/17 Time Initiated: 13:03 Assessment reference: NA Status: Active Priority: 4 Treatment assets and liabiliti Patient Assests: self-reliant, ADL independent, negotiates basic needs, good interpersonal skills Patient Liabilities: live alone, poor support system, substance abuse, medical problems - Milieu Protocol Maintain good personal hygiene: daily Encourage regular showers, daily Remind patient to perform daily oral care, daily Assist patient to perform ADL's Maintain personal safety: daily Educate patient to report safety concerns to staff, daily Monitor environment for contraband/sharps Medication safety: Monitor for expected outcome, potential side effects: daily, Assess barriers to learning: daily, Assess readiness for medication education: daily Milieu Narrative: * Group, milieu and supportive tx * Remeron 15 mg HS for depression * Abilify 5 mg PO HS to augment remeron for depression * Neurontin 200 mg PO TID for anxiety and mood control, off label * Sonata 5 mg HS prn: insomnia * Ativan 1 mg q6 for alcohol withdrawal, taper as tolerated * Awaiting medical consult * Vitals reviewed and noted below: Selected Entries 04/23/17 05/18/17 07:35 21:29 Temperature 97.4 F L 98.0 F Pulse Rate 64 85 Respiratory 20 18 Rate Blood Pressure 110/55 L 133/75 O2 Sat by Pulse 98 Oximetry ER LABS AND STUDIES 05/18/17 21:05: Urine Color Yellow, Urine Appearance Clear, Urine pH 6.0, Ur Specific [place] 1.020, Urine Protein Trace H, Urine Glucose (UA) Negative, Urine Ketones Trace H, Urine Blood Negative, Urine Nitrate Negative, Urine Bilirubin Negative, Urine Urobilinogen 0.2, Ur Leukocyte Esterase Negative, Urine RBC Pending, Urine WBC Pending 05/18/17 20:44: Alcohol, Quantitative 283 H 05/18/17 20:44: Salicylates < 1 L, Acetaminophen < 10.0 L 05/18/17 20:44: Sodium 149 H, Potassium 4.3, Chloride 104, Carbon Dioxide 32, Anion Gap 17, BUN 10, Creatinine 0.9, Est GFR ( Amer) > 60, Est GFR (Non- Af Amer) > 60, Random Glucose 92, Calcium 9.0, Total Bilirubin 0.6, AST 149 H D , ALT 168 H, Alkaline Phosphatase 67, Total Protein 8.9 H, Albumin 4.6, Globulin 4.3, Albumin/Globulin Ratio 1.1 05/18/17 20:44: WBC 7.1, RBC 5.58, Hgb 18.4 H*, Hct 50.7, MCV 90.9, MCH 33.0, MCHC 36.3, RDW 13.0, Plt Count 325, MPV 9.4, Gran % 51.6, Lymph % (Auto) 38.1 H , [place] % (Auto) 7.9 H, Eos % (Auto) 1.6, Baso % (Auto) 0.8, Gran # 3.64, Lymph # 2.7, [place] # 0.6, Eos # 0.1, Baso # 0.06 EKG: Rate : 64 BPM Rhythm : NSR Interpretation : Nonspecific ST segment changes, chest xray: No active disease FLOOR LABS 05/19/17 05/19/17 06:40 06:40 Triglycerides 56 Cholesterol 166 LDL Cholesterol Direct 78 HDL Cholesterol 74 H TSH 3rd Generation 1.62 Family Contact Family involvement: No known Family/SO Family contact: Patient declines to allow family contact at present Discharge/Continuing Care - Education Needs Education Needs: Patient Medication, Patient Diagnosis/Disease Process, Patient Coping Skills, Patient Anger Management skills, Patient Activities of Daily Living, Patient Pain - Discharge Discharge Criteria: Free of Suicidal thoughts, Normal sleep pattern - Treatment Team Participation Patient/Family/SO Statement: * Group, milieu and supportive tx * Remeron 15 mg HS for depression * Abilify 5 mg PO HS to augment remeron for depression * Neurontin 200 mg PO TID for anxiety and mood control, off label * Sonata 5 mg HS prn: insomnia * Ativan 1 mg q6 for alcohol withdrawal, taper as tolerated * Awaiting medical consult * Vitals reviewed and noted below: Selected Entries 04/23/17 05/18/17 07:35 21:29 Temperature 97.4 F L 98.0 F Pulse Rate 64 85 Respiratory 20 18 Rate Blood Pressure 110/55 L 133/75 O2 Sat by Pulse 98 Oximetry ER LABS AND STUDIES 05/18/17 21:05: Urine Color Yellow, Urine Appearance Clear, Urine pH 6.0, Ur Specific [place] 1.020, Urine Protein Trace H, Urine Glucose (UA) Negative, Urine Ketones Trace H, Urine Blood Negative, Urine Nitrate Negative, Urine Bilirubin Negative, Urine Urobilinogen 0.2, Ur Leukocyte Esterase Negative, Urine RBC Pending, Urine WBC Pending 05/18/17 20:44: Alcohol, Quantitative 283 H 05/18/17 20:44: Salicylates < 1 L, Acetaminophen < 10.0 L 05/18/17 20:44: Sodium 149 H, Potassium 4.3, Chloride 104, Carbon Dioxide 32, Anion Gap 17, BUN 10, Creatinine 0.9, Est GFR ( Amer) > 60, Est GFR (Non- Af Amer) > 60, Random Glucose 92, Calcium 9.0, Total Bilirubin 0.6, AST 149 H D , ALT 168 H, Alkaline Phosphatase 67, Total Protein 8.9 H, Albumin 4.6, Globulin 4.3, Albumin/Globulin Ratio 1.1 05/18/17 20:44: WBC 7.1, RBC 5.58, Hgb 18.4 H*, Hct 50.7, MCV 90.9, MCH 33.0, MCHC 36.3, RDW 13.0, Plt Count 325, MPV 9.4, Gran % 51.6, Lymph % (Auto) 38.1 H , [place] % (Auto) 7.9 H, Eos % (Auto) 1.6, Baso % (Auto) 0.8, Gran # 3.64, Lymph # 2.7, [place] # 0.6, Eos # 0.1, Baso # 0.06 EKG: Rate : 64 BPM Rhythm : NSR Interpretation : Nonspecific ST segment changes, chest xray: No active disease FLOOR LABS 05/19/17 05/19/17 06:40 06:40 Triglycerides 56 Cholesterol 166 LDL Cholesterol Direct 78 HDL Cholesterol 74 H TSH 3rd Generation 1.62
--- NOTE | 2017-05-20 13:04 | CP.PCM.PN ---
<Blake Andersen - Last Filed: 05/20/17 13:04> Subjective - Date & Time of Evaluation Date of Evaluation: 05/20/17 Time of Evaluation: 12:15 - Subjective Subjective: Subjective: Patient seen and examined at bedside. Resting comfortably in bed. No acute overnight events. Patient states admitting symptoms have improved relative to baseline. Offers no new complaints at this time. Denies f/c/cp/sob/abdominal pain/n/v/d/c/urinary sxs. Physical Examination: - Constitutional Appears: No Acute Distress - Head Exam Head Exam: ATRAUMATIC, NORMOCEPHALIC - Eye Exam Eye Exam: EOMI, PERRL - ENT Exam ENT Exam: Mucous Membranes Dry - Neck Exam Neck exam: Positive for: Full Rom. Negative for: Lymphadenopathy, Tenderness, Thyromegaly - Respiratory Exam Respiratory Exam: Clear to Auscultation Bilateral. absent: Rales, Rhonchi, Wheezes - Cardiovascular Exam Cardiovascular Exam: RRR, +S1, +S2. absent: Diastolic murmur, Gallop, Rubs, Systolic Murmur - GI/Abdominal Exam GI & Abdominal Exam: Soft. absent: Distended, Guarding, Organomegaly, Rebound, Tenderness - Extremities Exam Extremities exam: Positive for: normal inspection - Neurological Exam Neurological exam: Alert, Oriented x3 - Psychiatric Exam Psychiatric exam: Anxious, Normal Affect - Skin Skin Exam: Dry, Intact, Normal Color, Warm Assessment and Plan: 26 yo male with PMHx of congenital HIV and depression admitted for suicidal ideation. Medicine was consulted for patients history of HIV and dehydration. Suicidal Ideation/Depression - TSH WNL - Management per psychiatry HIV - Continue home med, Genvoya, start [place] therapy as per ID - F/u CD4 count, viral load - ID consulted Dehydration - Hgb 17.3, Na 141- corrected - Promote increased PO fluid intake Multisubstance abuse - Counseled patient on risks of alcohol and ilicit drug use and advised cessation Transaminitis - Increased LFT's likely due to alcohol use - EtOH level 283 - Tylenol and ASA level negative - Lipid panel WNL Dispo: Patient has been medically optimized. Medicine team is signing off of patient. Please re-consult if needed. Thank you for the opportunity to participate in this patient's care. Patient seen, case discussed with, and plan approved by attending physician, Dr. Rashid. Objective - Vital Signs/Intake and Output Vital Signs (last 24 hours): Temp Pulse Resp BP Pulse Ox 97.9 F 75 20 123/84 98 05/19/17 07:00 05/19/17 16:00 05/19/17 07:00 05/19/17 16:00 05/18/17 21:29 - Medications Medications: Current Medications Aripiprazole (Abilify) 5 mg PO HS TONI Last Admin: 05/19/17 21:32 Dose: 5 mg Folic Acid (Folic Acid) 1 mg PO DAILY TONI Last Admin: 05/20/17 07:59 Dose: 1 mg Gabapentin (Neurontin) 200 mg PO TID TONI PRN Reason: Protocol Last Admin: 05/20/17 07:59 Dose: 200 mg Lorazepam (Ativan) 1 mg PO Q6 TONI PRN Reason: Protocol Last Admin: 05/20/17 12:43 Dose: 1 mg Mirtazapine (Remeron) 15 mg PO HS [facility] Last Admin: 05/19/17 21:32 Dose: Not Given Multivitamins (Thera Tab) 1 tab PO 0800 TONI Last Admin: 05/20/17 07:59 Dose: 1 tab Nicotine (Nicoderm Cq) 1 patch TD DAILY [facility] Last Admin: 05/20/17 07:59 Dose: Not Given Non-Formulary Medication (Elviteg/Elis/Emtric/Tenofo Ala [Genvoya Tablet]) 1 each PO DAILY TONI Last Admin: 05/20/17 08:03 Dose: Not Given Thiamine HCl (Vitamin B1 Tab) 100 mg PO DAILY [facility] Last Admin: 05/20/17 07:59 Dose: 100 mg Zaleplon (Sonata) 5 mg PO HS PRN PRN Reason: Insomnia Last Admin: 05/19/17 21:32 Dose: 5 mg - Labs Labs: 05/20/17 07:54 05/20/17 07:54 <Talisha Rashid - Last Filed: 05/20/17 17:30> Objective - Vital Signs/Intake and Output Vital Signs (last 24 hours): Temp Pulse Resp BP Pulse Ox 97.9 F 75 20 123/84 98 05/19/17 07:00 05/19/17 16:00 05/19/17 07:00 05/19/17 16:00 05/18/17 21:29 - Medications Medications: Current Medications Aripiprazole (Abilify) 5 mg PO HS TONI Last Admin: 05/19/17 21:32 Dose: 5 mg Folic Acid (Folic Acid) 1 mg PO DAILY TONI Last Admin: 05/20/17 07:59 Dose: 1 mg Gabapentin (Neurontin) 300 mg PO TID TONI PRN Reason: Protocol Lorazepam (Ativan) 1 mg PO Q6 TONI PRN Reason: Protocol Last Admin: 05/20/17 12:43 Dose: 1 mg Multivitamins (Thera Tab) 1 tab PO 0800 TONI Last Admin: 05/20/17 07:59 Dose: 1 tab Nicotine (Nicoderm Cq) 1 patch TD DAILY TONI Last Admin: 05/20/17 07:59 Dose: Not Given Non-Formulary Medication (Elviteg/Elis/Emtric/Tenofo Ala [Genvoya Tablet]) 1 each PO DAILY TONI Last Admin: 05/20/17 08:03 Dose: Not Given Thiamine HCl (Vitamin B1 Tab) 100 mg PO DAILY TONI Last Admin: 05/20/17 07:59 Dose: 100 mg Zaleplon (Sonata) 10 mg PO HS TONI - Labs Labs: 05/20/17 07:54 05/20/17 07:54 Attending/Attestation - Attestation I have personally seen and examined this patient.: Yes I have fully participated in the care of the patient.: Yes I have reviewed all pertinent clinical information, including history, physical exam and plan: Yes Notes (Text): 05/20/17 17:25 attending note; Patient seen and examined with resident. Patient is a 26-year-old male with a history of HIV, alcohol abuse, active smoking, anxiety depression, noncompliance with follow-up as admitted to psychiatric floor for anxiety and depression. Mild dehydration; corrected. Hypernatremia resolved. encouraged increased by mouth fluid intake. Dietitian evaluation requested. HIV; noncompliance with medication. Seen by ID. Viral load and CD4 count ordered. patient takes Genvoya at home. needs close follow-up with infectious disease specialist. Smoking cessation/alcohol cessation is strongly advised. Continue Ativan when necessary. Continue multivitamin, thiamine, folic acid. Currently on NicoDerm patch. elevated LFTs; secondary to alcohol abuse. Hepatitis profile is negative. patient is medically stable. Please reconsult as needed. Thank you for the courtesy of this consultation.
--- NOTE | 2017-05-20 14:08 | CP.PCM.PN ---
Subjective - Date & Time of Evaluation Date of Evaluation: 05/20/17 Time of Evaluation: 08:00 - Subjective Subjective: Comfortable, no fevers. Objective - Vital Signs/Intake and Output Vital Signs (last 24 hours): Temp Pulse Resp BP Pulse Ox 97.9 F 75 20 123/84 98 05/19/17 07:00 05/19/17 16:00 05/19/17 07:00 05/19/17 16:00 05/18/17 21:29 - Medications Medications: Current Medications Aripiprazole (Abilify) 5 mg PO HS [facility] Last Admin: 05/19/17 21:32 Dose: 5 mg Folic Acid (Folic Acid) 1 mg PO DAILY [facility] Gabapentin (Neurontin) 200 mg PO TID TONI PRN Reason: Protocol Last Admin: 05/19/17 18:30 Dose: 200 mg Lorazepam (Ativan) 1 mg PO Q6 TONI PRN Reason: Protocol Last Admin: 05/19/17 23:36 Dose: 1 mg Mirtazapine (Remeron) 15 mg PO HS [facility] Last Admin: 05/19/17 21:32 Dose: Not Given Multivitamins (Thera Tab) 1 tab PO 0800 [facility] Last Admin: 05/19/17 08:12 Dose: 1 tab Nicotine (Nicoderm Cq) 1 patch TD DAILY [facility] Last Admin: 05/19/17 11:51 Dose: Not Given Non-Formulary Medication (Elviteg/Elis/Emtric/Tenofo Ala [Genvoya Tablet]) 1 each PO DAILY [facility] Thiamine HCl (Vitamin B1 Tab) 100 mg PO DAILY [facility] Last Admin: 05/19/17 08:12 Dose: 100 mg Zaleplon (Sonata) 5 mg PO HS PRN PRN Reason: Insomnia Last Admin: 05/19/17 21:32 Dose: 5 mg - Constitutional Appears: Non-toxic, No Acute Distress - Head Exam Head Exam: NORMAL INSPECTION - ENT Exam ENT Exam: Mucous Membranes Moist - Neck Exam Neck Exam: absent: Meningismus - Respiratory Exam Respiratory Exam: Decreased Breath Sounds - Cardiovascular Exam Cardiovascular Exam: +S1, +S2 - GI/Abdominal Exam GI & Abdominal Exam: Soft. absent: Tenderness Assessment and Plan - Assessment and Plan (Free Text) Plan: Assessment chronic HIV infection (since ) schizophrenia history of depression significant smoking history history of substance abuse Plan Continue Genvoya follow up Hepatitis profile, HIV virus load, CD4 count will monitor clinically
--- NOTE | 2017-05-20 16:22 | PCM.PYCHPN ---
Psychiatric Progress Note - Psychiatric Progress Note Patient seen today, length of contact: 30min Patient Chief Complaint: "I was depressed, I don't know I am crying constantly" Diagnostic Results: 05/20/17 07:54 05/20/17 07:54 Lab Results 05/20/17 07:54: Sodium 141, Potassium 4.1, Chloride 101, Carbon Dioxide 30, Anion Gap 14, BUN 10, Creatinine 0.7, Est GFR ( Amer) > 60, Est GFR (Non- Af Amer) > 60, Random Glucose 98, Calcium 9.5, Phosphorus 3.6, Magnesium 1.9, Total Bilirubin 1.6 H, AST 109 H D, ALT 154 H, Alkaline Phosphatase 61, Total Protein 8.7 H, Albumin 4.5, Globulin 4.2, Albumin/Globulin Ratio 1.1 05/20/17 07:54: WBC 5.6 D, RBC 5.29, Hgb 17.3, Hct 48.7, MCV 92.1, MCH 32.7, MCHC 35.5, RDW 13.0, Plt Count 281, MPV 9.9 05/19/17 18:56: Hepatitis A IgM Ab Negative, Hep Bs Antigen Negative, Hep B Core IgM Ab Negative, Hepatitis C Antibody Negative 05/19/17 06:40: TSH 3rd Generation 1.62 05/19/17 06:40: Hemoglobin A1c 5.5 05/19/17 06:40: Triglycerides 56, Cholesterol 166, LDL Cholesterol Direct 78, HDL Cholesterol 74 H 05/18/17 21:05: Urine Opiates Screen Negative, Urine Methadone Screen Negative, Ur Barbiturates Screen Negative, Ur Phencyclidine Scrn Negative, Ur Amphetamines Screen Negative, U Benzodiazepines Scrn Negative, U Oth Cocaine Metabols Negative, U Cannabinoids Screen Positive H 05/18/17 21:05: Urine Color Yellow, Urine Appearance Clear, Urine pH 6.0, Ur Specific [place] 1.020, Urine Protein Trace H, Urine Glucose (UA) Negative, Urine Ketones Trace H, Urine Blood Negative, Urine Nitrate Negative, Urine Bilirubin Negative, Urine Urobilinogen 0.2, Ur Leukocyte Esterase Negative, Urine RBC 0 - 2, Urine WBC 0 - 2, Ur Epithelial Cells 0 - 2 05/18/17 20:44: Alcohol, Quantitative 283 H 05/18/17 20:44: Salicylates < 1 L, Acetaminophen < 10.0 L 05/18/17 20:44: Sodium 149 H, Potassium 4.3, Chloride 104, Carbon Dioxide 32, Anion Gap 17, BUN 10, Creatinine 0.9, Est GFR ( Amer) > 60, Est GFR (Non- Af Amer) > 60, Random Glucose 92, Calcium 9.0, Total Bilirubin 0.6, AST 149 H D , ALT 168 H, Alkaline Phosphatase 67, Total Protein 8.9 H, Albumin 4.6, Globulin 4.3, Albumin/Globulin Ratio 1.1 05/18/17 20:44: WBC 7.1, RBC 5.58, Hgb 18.4 H*, Hct 50.7, MCV 90.9, MCH 33.0, MCHC 36.3, RDW 13.0, Plt Count 325, MPV 9.4, Gran % 51.6, Lymph % (Auto) 38.1 H , [place] % (Auto) 7.9 H, Eos % (Auto) 1.6, Baso % (Auto) 0.8, Gran # 3.64, Lymph # 2.7, [place] # 0.6, Eos # 0.1, Baso # 0.06 Vital Signs Temp Pulse Resp BP Pulse Ox 05/19/17 16:00 75 123/84 05/19/17 07:00 97.9 F 78 20 114/83 05/18/17 21:29 98.0 F 85 18 133/75 98 DSM 5 Symptoms Update: Patient is a single HIV+ 26 year old male with a psychiatric history of bipolar disorder, borderline personality disorder, panic disorder, alcohol dependency, stimulant abuse, numerous admissions-most recently at [facility] 04/19/17-04/23, poor compliance with aftercare recommendations and medications who was brought in by EMS to the emergency department for suicidal ideation and alcohol intoxication. ER report indicates that patient was trying to jump in front of traffic to kill himself. pt was seen at tx team meeting, pt was emotional, was crying, seems to be overwhelmed. said he has sexual side effects from the majority of psychotropic medications, including remeron, trazodon, antipsychotic medications. pt said he was feeling depressed and hopeless, low mood and energy. pt was coping with stress with alcohol, smoking marijuana two to three times a week. Pt denies hallucinations and no longer has thoughts to harm himself or others. There were no behavioral issues on the unit overnight Patient has a history of multiple suicide attempts and suicidal gestures. Most recently patient inflicted three lacerations on his arms after his girlfriend broke up with him in early April Patient reports that he has been a dependent on alcohol for last two years~last drink was yesterday. He is unable to quantify his recent use. Patient reports a history of tremors and withdrawal seizures, most recently a few months ago. Patient also has a history of marijuana use, patient smokes marijuana approximately 2 to 3 times weekly. Prior records indicate that he has a history of stimulant abuse. Patient also reports that he smokes half a pack of cigarettes daily. Patient was counseled about the morbidity and mortality risks of continued tobacco use and accepts nicotine patch when offered MSE: Pt was alert, oriented in self, time and place. Memory and concentration fair, fund of knowledge is fair. 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 Pt looks younger than chronological age, good personal hygiene, good ADLs, psychomotor retardation, speech was:underproductive , eye contact: intense, mood described: "hopeless", affect: tearful, mood congruent, thought process: goal directed and organized, thought content: denied SI/ HI, denied v/ a/t hallucinations, denied paranoid ideation and pt does not appear to be internally preoccupied or responding to internal stimuli, insight: poor judgment: fair, impulses are well controlled. Pt tolerates meds well, no side effects observed or reported, AIMS 0, no EPS Impression: DSM V: as per h/o bipolar as per h/o ?ADHD Plan: Milieu/structure/supportive therapy Medical consult appreciated, see medical team note for more detailed info SW consultation for discharge plan and social issues Med management sonata remeron was d/c ativan scheduled and prn abilify 5mg po hs for mood stabilization neurontin Family involvement Follow up on labs Will monitor closely Pt was educated about risk/benefits and alternatives of medications, coping strategies (safety plan, suicide prevention), relapse prevention, importance of follow up with psychiatrist and therapist, stay away from drugs/alcohol/smoking MVI, thiamine, folic acid Monitor vitals Ativan scheduled and PRN Medication Change: Yes Medical Record Reviewed: Yes Consults ordered or reviewed: medical and ID consult appreciated Mental Status Examination - Cognitive Function Orientation: Person, Place, Situation - Mood Mood: Depressed, Anxious - Affect Affect: Constricted - Formal Thought Process Formal Thought Process: No Impairment - Homicidal Ideation Homicidal Ideation: No Goal/Treatment Plan - Goal/Treatment Plan Need for Continued Stay: Remain at risks for inpatient hospitalization, Severe depression anxiety, Discharge may exacerbated symptoms, Severe functional impairment - Smoking Cessation Smoking Cessation Initiated: Yes
[2017-05-21] MEDS: Multivitamin Therapeutic Tab PO SCH (09:00)
[2017-05-21] MEDS: [UNRECOGNIZED DRUG - OTHER] PO SCH (11:34)
--- NOTE | 2017-05-21 14:02 | PN ---
DATE: 05/21/2017 SUBJECTIVE: The patient is in bed, in no acute distress, nontoxic. PHYSICAL EXAMINATION: VITAL SIGNS: Was seen earlier this morning in psychiatric floor with a temperature of 98, blood pressure is 114/60, respiratory rate of 18. HEENT: Unremarkable. NECK: Supple. LUNGS: Decreased breath sounds. HEART: Normal S1 and S2. ABDOMEN: Soft. LABORATORY DATA: Reveals a CD4 count is 28%, is 504, and hepatitis profile is negative. ASSESSMENT AND PLAN: This is a 26-year-old male who is with a chronic human immunodeficiency virus infection since and schizophrenia, depression, significant smoking history and substance abuse, currently on Genvoya, hepatitis is negative and T cells are noted. Viral load is pending. Concerned about a hemoglobin of 18, should have a hematology evaluation, significant smoking history, for erythrocytosis. Roby Montana MD
--- NOTE | 2017-05-21 15:04 | PCM.PYCHPN ---
Psychiatric Progress Note - Psychiatric Progress Note Patient seen today, length of contact: 30min Patient Chief Complaint: "I was depressed, I don't know I am crying constantly" Diagnostic Results: 05/20/17 07:54 05/20/17 07:54 Lab Results 05/20/17 07:54: Sodium 141, Potassium 4.1, Chloride 101, Carbon Dioxide 30, Anion Gap 14, BUN 10, Creatinine 0.7, Est GFR ( Amer) > 60, Est GFR (Non- Af Amer) > 60, Random Glucose 98, Calcium 9.5, Phosphorus 3.6, Magnesium 1.9, Total Bilirubin 1.6 H, AST 109 H D, ALT 154 H, Alkaline Phosphatase 61, Total Protein 8.7 H, Albumin 4.5, Globulin 4.2, Albumin/Globulin Ratio 1.1 05/20/17 07:54: WBC 5.6 D, RBC 5.29, Hgb 17.3, Hct 48.7, MCV 92.1, MCH 32.7, MCHC 35.5, RDW 13.0, Plt Count 281, MPV 9.9 05/19/17 18:56: Hepatitis A IgM Ab Negative, Hep Bs Antigen Negative, Hep B Core IgM Ab Negative, Hepatitis C Antibody Negative 05/19/17 06:40: TSH 3rd Generation 1.62 05/19/17 06:40: Hemoglobin A1c 5.5 05/19/17 06:40: Triglycerides 56, Cholesterol 166, LDL Cholesterol Direct 78, HDL Cholesterol 74 H 05/18/17 21:05: Urine Opiates Screen Negative, Urine Methadone Screen Negative, Ur Barbiturates Screen Negative, Ur Phencyclidine Scrn Negative, Ur Amphetamines Screen Negative, U Benzodiazepines Scrn Negative, U Oth Cocaine Metabols Negative, U Cannabinoids Screen Positive H 05/18/17 21:05: Urine Color Yellow, Urine Appearance Clear, Urine pH 6.0, Ur Specific [place] 1.020, Urine Protein Trace H, Urine Glucose (UA) Negative, Urine Ketones Trace H, Urine Blood Negative, Urine Nitrate Negative, Urine Bilirubin Negative, Urine Urobilinogen 0.2, Ur Leukocyte Esterase Negative, Urine RBC 0 - 2, Urine WBC 0 - 2, Ur Epithelial Cells 0 - 2 05/18/17 20:44: Alcohol, Quantitative 283 H 05/18/17 20:44: Salicylates < 1 L, Acetaminophen < 10.0 L 05/18/17 20:44: Sodium 149 H, Potassium 4.3, Chloride 104, Carbon Dioxide 32, Anion Gap 17, BUN 10, Creatinine 0.9, Est GFR ( Amer) > 60, Est GFR (Non- Af Amer) > 60, Random Glucose 92, Calcium 9.0, Total Bilirubin 0.6, AST 149 H D , ALT 168 H, Alkaline Phosphatase 67, Total Protein 8.9 H, Albumin 4.6, Globulin 4.3, Albumin/Globulin Ratio 1.1 05/18/17 20:44: WBC 7.1, RBC 5.58, Hgb 18.4 H*, Hct 50.7, MCV 90.9, MCH 33.0, MCHC 36.3, RDW 13.0, Plt Count 325, MPV 9.4, Gran % 51.6, Lymph % (Auto) 38.1 H , [place] % (Auto) 7.9 H, Eos % (Auto) 1.6, Baso % (Auto) 0.8, Gran # 3.64, Lymph # 2.7, [place] # 0.6, Eos # 0.1, Baso # 0.06 Vital Signs Temp Pulse Resp BP Pulse Ox 05/19/17 16:00 75 123/84 05/19/17 07:00 97.9 F 78 20 114/83 05/18/17 21:29 98.0 F 85 18 133/75 98 Temp Pulse Resp BP Pulse Ox 97.9 F 64 19 120/74 98 05/21/17 06:46 05/21/17 06:46 05/21/17 06:46 05/21/17 06:46 05/21/17 06:46 Abnormal Lab Results 05/20/17 07:30 Absolute Lymphs (Flow) 1824 % CD4 Cells 28 L Absolute CD4 Count 506 T-Help/Suppress Ratio 0.50 L % CD8 Cells 55 H Absolute CD8 Count 1012 DSM 5 Symptoms Update: Patient is a single HIV+ 26 year old male with a psychiatric history of bipolar disorder, borderline personality disorder, panic disorder, alcohol dependency, stimulant abuse, numerous admissions-most recently at [facility] 04/19/17-04/23, poor compliance with aftercare recommendations and medications who was brought in by EMS to the emergency department for suicidal ideation and alcohol intoxication. ER report indicates that patient was trying to jump in front of traffic to kill himself. pt was seen at tx team meeting room with SUSHILA, medical students, pt was emotional , was crying, seems to be overwhelmed. pt reported his tremor is better, pt said he feels depressed and hopeless, pt said that he cut his forearms about a month ago, has some scars on the dorsal aspect of the forearms. pt was educated about meds, risk, benefits and alternatives discussed. MSE: Pt was alert, oriented in self, time and place. Memory and concentration fair, fund of knowledge is fair. Pt deemed to be unreliable historian, well related to this policy writer sales. Pt looks younger than chronological age, good personal hygiene, good ADLs, psychomotor retardation, speech was: underproductive , eye contact: intense, mood described: "hopeless", affect: tearful, mood congruent, thought process: goal directed and organized, thought content: denied SI/ HI, denied v/ a/t hallucinations, denied paranoid ideation and pt does not appear to be internally preoccupied or responding to internal stimuli, insight: poor judgment: fair, impulses are well controlled. Pt tolerates meds well, no side effects observed or reported, AIMS 0, no EPS Impression: DSM V: as per h/o bipolar as per h/o ?ADHD Plan: Milieu/structure/supportive therapy Medical consult appreciated, see medical team note for more detailed info consultation for discharge plan and social issues Med management sonata remeron will be resumed effexor 37.5mg po daily for depression and anxiety ativan scheduled and prn abilify 5mg po hs for mood stabilization neurontin Family involvement Follow up on labs Will monitor closely Pt was educated about risk/benefits and alternatives of medications, coping strategies (safety plan, suicide prevention), relapse prevention, importance of follow up with psychiatrist and therapist, stay away from drugs/alcohol/smoking MVI, thiamine, folic acid Monitor vitals Ativan scheduled and PRN Medication Change: Yes (effexor, remeron resumed) Medical Record Reviewed: Yes Consults ordered or reviewed: medical and ID consult appreciated ID suggested hem/onc consult, discussed with , pt was dehydrated doing better, but no Hem/onc consult recommended from her side Mental Status Examination - Cognitive Function Orientation: Person, Place, Situation - Mood Mood: Depressed, Anxious - Affect Affect: Constricted - Formal Thought Process Formal Thought Process: No Impairment - Homicidal Ideation Homicidal Ideation: No Goal/Treatment Plan - Goal/Treatment Plan Need for Continued Stay: Remain at risks for inpatient hospitalization, Severe depression anxiety, Discharge may exacerbated symptoms, Severe functional impairment Estimated Date of D/C: 05/30/17
[2017-05-22] MEDS: Multivitamin Therapeutic Tab PO SCH (08:31)
[2017-05-22] MEDS: [UNRECOGNIZED DRUG - OTHER] PO SCH (09:12)
--- NOTE | 2017-05-22 15:10 | PN ---
DATE: 05/22/2017 SUBJECTIVE: The patient seen on the psychiatric floor early this morning. The patient offers no complaints. PHYSICAL EXAMINATION VITAL SIGNS: Temperature is 98, blood pressure is 117/70, respirations 16. HEENT: Unremarkable. NECK: Supple. LUNGS: Have decreased breath sounds. HEART: Normal S1 and S2. ABDOMEN: Soft. LABORATORY DATA: Reveals a white count of 5.6, hemoglobin of 17, and platelets of 281. Chemistries are noted and they were unremarkable. The patient's T cell was 28. ASSESSMENT AND PLAN: A 26-year-old male who is positive human immunodeficiency virus since and schizophrenia depression with substance abuse and smoking history. We will continue on Genvoya, the patient's HIV medications and the patient to follow up with an HIV doctor as an outpatient. Roby Montana MD
--- NOTE | 2017-05-22 15:30 | PCM.PYCHPN ---
Psychiatric Progress Note - Psychiatric Progress Note Patient seen today, length of contact: 30min Patient Chief Complaint: "I am little better" Diagnostic Results: 05/20/17 07:54 05/20/17 07:54 Lab Results 05/20/17 07:54: Sodium 141, Potassium 4.1, Chloride 101, Carbon Dioxide 30, Anion Gap 14, BUN 10, Creatinine 0.7, Est GFR ( Amer) > 60, Est GFR (Non- Af Amer) > 60, Random Glucose 98, Calcium 9.5, Phosphorus 3.6, Magnesium 1.9, Total Bilirubin 1.6 H, AST 109 H D, ALT 154 H, Alkaline Phosphatase 61, Total Protein 8.7 H, Albumin 4.5, Globulin 4.2, Albumin/Globulin Ratio 1.1 05/20/17 07:54: WBC 5.6 D, RBC 5.29, Hgb 17.3, Hct 48.7, MCV 92.1, MCH 32.7, MCHC 35.5, RDW 13.0, Plt Count 281, MPV 9.9 05/19/17 18:56: Hepatitis A IgM Ab Negative, Hep Bs Antigen Negative, Hep B Core IgM Ab Negative, Hepatitis C Antibody Negative 05/19/17 06:40: TSH 3rd Generation 1.62 05/19/17 06:40: Hemoglobin A1c 5.5 05/19/17 06:40: Triglycerides 56, Cholesterol 166, LDL Cholesterol Direct 78, HDL Cholesterol 74 H 05/18/17 21:05: Urine Opiates Screen Negative, Urine Methadone Screen Negative, Ur Barbiturates Screen Negative, Ur Phencyclidine Scrn Negative, Ur Amphetamines Screen Negative, U Benzodiazepines Scrn Negative, U Oth Cocaine Metabols Negative, U Cannabinoids Screen Positive H 05/18/17 21:05: Urine Color Yellow, Urine Appearance Clear, Urine pH 6.0, Ur Specific [place] 1.020, Urine Protein Trace H, Urine Glucose (UA) Negative, Urine Ketones Trace H, Urine Blood Negative, Urine Nitrate Negative, Urine Bilirubin Negative, Urine Urobilinogen 0.2, Ur Leukocyte Esterase Negative, Urine RBC 0 - 2, Urine WBC 0 - 2, Ur Epithelial Cells 0 - 2 05/18/17 20:44: Alcohol, Quantitative 283 H 05/18/17 20:44: Salicylates < 1 L, Acetaminophen < 10.0 L 05/18/17 20:44: Sodium 149 H, Potassium 4.3, Chloride 104, Carbon Dioxide 32, Anion Gap 17, BUN 10, Creatinine 0.9, Est GFR ( Amer) > 60, Est GFR (Non- Af Amer) > 60, Random Glucose 92, Calcium 9.0, Total Bilirubin 0.6, AST 149 H D , ALT 168 H, Alkaline Phosphatase 67, Total Protein 8.9 H, Albumin 4.6, Globulin 4.3, Albumin/Globulin Ratio 1.1 05/18/17 20:44: WBC 7.1, RBC 5.58, Hgb 18.4 H*, Hct 50.7, MCV 90.9, MCH 33.0, MCHC 36.3, RDW 13.0, Plt Count 325, MPV 9.4, Gran % 51.6, Lymph % (Auto) 38.1 H , [place] % (Auto) 7.9 H, Eos % (Auto) 1.6, Baso % (Auto) 0.8, Gran # 3.64, Lymph # 2.7, [place] # 0.6, Eos # 0.1, Baso # 0.06 Vital Signs Temp Pulse Resp BP Pulse Ox 05/19/17 16:00 75 123/84 05/19/17 07:00 97.9 F 78 20 114/83 05/18/17 21:29 98.0 F 85 18 133/75 98 Temp Pulse Resp BP Pulse Ox 97.9 F 64 19 120/74 98 05/21/17 06:46 05/21/17 06:46 05/21/17 06:46 05/21/17 06:46 05/21/17 06:46 Abnormal Lab Results 05/20/17 07:30 Absolute Lymphs (Flow) 1824 % CD4 Cells 28 L Absolute CD4 Count 506 T-Help/Suppress Ratio 0.50 L % CD8 Cells 55 H Absolute CD8 Count 1012 Temp Pulse Resp BP Pulse Ox 97.7 F 75 20 117/71 98 05/22/17 07:15 05/22/17 07:15 05/22/17 07:15 05/22/17 07:15 05/21/17 06:46 DSM 5 Symptoms Update: Patient is a single HIV+ 26 year old male with a psychiatric history of bipolar disorder, borderline personality disorder, panic disorder, alcohol dependency, stimulant abuse, numerous admissions-most recently at [facility] 04/19/17-04/23, poor compliance with aftercare recommendations and medications who was brought in by EMS to the emergency department for suicidal ideation and alcohol intoxication. ER report indicates that patient was trying to jump in front of traffic to kill himself. pt was seen at tx team meeting room with , medical students, pt was emotional , was crying, seems to be overwhelmed. pt was seen at the tx team meeting with medical students. pt obviously is less anxious, was less tearful., still has mind racing, still seems to have difficulties to concentrate and stay focused. pt was educated about meds. pt is HIV positive, pt said that his current GF knows about his status, pt said that he uses condoms for protection, pt is aware in case of new sexual relationship pt needs to use protection and notify partner. MSE: Pt was alert, oriented in self, time and place. Memory and concentration fair, fund of knowledge is fair. Pt deemed to be unreliable historian, well related to this script writer. Pt looks younger than chronological age, good personal hygiene, good ADLs, psychomotor retardation, speech was: underproductive , eye contact: intense, mood described: "I am little better", affect: tearful, mood congruent, thought process: goal directed and organized, thought content: denied SI/ HI, denied v/a/t hallucinations, denied paranoid ideation and pt does not appear to be internally preoccupied or responding to internal stimuli, insight: poor judgment: fair, impulses are well controlled. Pt tolerates meds well, no side effects observed or reported, AIMS 0, no EPS Impression: DSM V: as per h/o bipolar as per h/o ?ADHD Plan: Milieu/structure/supportive therapy Medical consult appreciated, see medical team note for more detailed info consultation for discharge plan and social issues Med management sonata remeron will be resumed effexor 37.5mg po bid for depression and anxiety ativan scheduled and prn abilify 5mg po hs for mood stabilization neurontin Family involvement Follow up on labs Will monitor closely Pt was educated about risk/benefits and alternatives of medications, coping strategies (safety plan, suicide prevention), relapse prevention, importance of follow up with psychiatrist and therapist, stay away from drugs/alcohol/smoking MVI, thiamine, folic acid Monitor vitals Ativan scheduled and PRN preliminary d/c Saturday-Saturday Medication Change: Yes (effexor increased) Medical Record Reviewed: Yes Mental Status Examination - Cognitive Function Orientation: Person, Place, Situation - Mood Mood: Depressed, Anxious - Affect Affect: Constricted - Formal Thought Process Formal Thought Process: No Impairment - Homicidal Ideation Homicidal Ideation: No Goal/Treatment Plan - Goal/Treatment Plan Need for Continued Stay: Remain at risks for inpatient hospitalization, Severe depression anxiety, Discharge may exacerbated symptoms, Severe functional impairment Estimated Date of D/C: 05/28/17
[2017-05-23] MEDS: Multivitamin Therapeutic Tab PO SCH (08:52)
[2017-05-23] MEDS: [UNRECOGNIZED DRUG - OTHER] PO SCH (08:56)
--- NOTE | 2017-05-23 15:35 | PCM.PYCHPN ---
Psychiatric Progress Note - Psychiatric Progress Note Patient seen today, length of contact: 30min Patient Chief Complaint: "I am little better" Diagnostic Results: 05/20/17 07:54 05/20/17 07:54 Lab Results 05/20/17 07:54: Sodium 141, Potassium 4.1, Chloride 101, Carbon Dioxide 30, Anion Gap 14, BUN 10, Creatinine 0.7, Est GFR ( Amer) > 60, Est GFR (Non- Af Amer) > 60, Random Glucose 98, Calcium 9.5, Phosphorus 3.6, Magnesium 1.9, Total Bilirubin 1.6 H, AST 109 H D, ALT 154 H, Alkaline Phosphatase 61, Total Protein 8.7 H, Albumin 4.5, Globulin 4.2, Albumin/Globulin Ratio 1.1 05/20/17 07:54: WBC 5.6 D, RBC 5.29, Hgb 17.3, Hct 48.7, MCV 92.1, MCH 32.7, MCHC 35.5, RDW 13.0, Plt Count 281, MPV 9.9 05/19/17 18:56: Hepatitis A IgM Ab Negative, Hep Bs Antigen Negative, Hep B Core IgM Ab Negative, Hepatitis C Antibody Negative 05/19/17 06:40: TSH 3rd Generation 1.62 05/19/17 06:40: Hemoglobin A1c 5.5 05/19/17 06:40: Triglycerides 56, Cholesterol 166, LDL Cholesterol Direct 78, HDL Cholesterol 74 H 05/18/17 21:05: Urine Opiates Screen Negative, Urine Methadone Screen Negative, Ur Barbiturates Screen Negative, Ur Phencyclidine Scrn Negative, Ur Amphetamines Screen Negative, U Benzodiazepines Scrn Negative, U Oth Cocaine Metabols Negative, U Cannabinoids Screen Positive H 05/18/17 21:05: Urine Color Yellow, Urine Appearance Clear, Urine pH 6.0, Ur Specific [place] 1.020, Urine Protein Trace H, Urine Glucose (UA) Negative, Urine Ketones Trace H, Urine Blood Negative, Urine Nitrate Negative, Urine Bilirubin Negative, Urine Urobilinogen 0.2, Ur Leukocyte Esterase Negative, Urine RBC 0 - 2, Urine WBC 0 - 2, Ur Epithelial Cells 0 - 2 05/18/17 20:44: Alcohol, Quantitative 283 H 05/18/17 20:44: Salicylates < 1 L, Acetaminophen < 10.0 L 05/18/17 20:44: Sodium 149 H, Potassium 4.3, Chloride 104, Carbon Dioxide 32, Anion Gap 17, BUN 10, Creatinine 0.9, Est GFR ( Amer) > 60, Est GFR (Non- Af Amer) > 60, Random Glucose 92, Calcium 9.0, Total Bilirubin 0.6, AST 149 H D , ALT 168 H, Alkaline Phosphatase 67, Total Protein 8.9 H, Albumin 4.6, Globulin 4.3, Albumin/Globulin Ratio 1.1 05/18/17 20:44: WBC 7.1, RBC 5.58, Hgb 18.4 H*, Hct 50.7, MCV 90.9, MCH 33.0, MCHC 36.3, RDW 13.0, Plt Count 325, MPV 9.4, Gran % 51.6, Lymph % (Auto) 38.1 H , [place] % (Auto) 7.9 H, Eos % (Auto) 1.6, Baso % (Auto) 0.8, Gran # 3.64, Lymph # 2.7, [place] # 0.6, Eos # 0.1, Baso # 0.06 Vital Signs Temp Pulse Resp BP Pulse Ox 05/19/17 16:00 75 123/84 05/19/17 07:00 97.9 F 78 20 114/83 05/18/17 21:29 98.0 F 85 18 133/75 98 Temp Pulse Resp BP Pulse Ox 97.9 F 64 19 120/74 98 05/21/17 06:46 05/21/17 06:46 05/21/17 06:46 05/21/17 06:46 05/21/17 06:46 Abnormal Lab Results 05/20/17 07:30 Absolute Lymphs (Flow) 1824 % CD4 Cells 28 L Absolute CD4 Count 506 T-Help/Suppress Ratio 0.50 L % CD8 Cells 55 H Absolute CD8 Count 1012 Temp Pulse Resp BP Pulse Ox 97.7 F 75 20 117/71 98 05/22/17 07:15 05/22/17 07:15 05/22/17 07:15 05/22/17 07:15 05/21/17 06:46 Temp Pulse Resp BP Pulse Ox 97.7 F 78 20 113/66 98 05/22/17 07:15 05/22/17 16:00 05/22/17 07:15 05/22/17 16:00 05/21/17 06:46 DSM 5 Symptoms Update: Patient is a single HIV+ 26 year old male with a psychiatric history of bipolar disorder, borderline personality disorder, panic disorder, alcohol dependency, stimulant abuse, numerous admissions-most recently at [facility] 04/19/17-04/23, poor compliance with aftercare recommendations and medications who was brought in by EMS to the emergency department for suicidal ideation and alcohol intoxication. ER report indicates that patient was trying to jump in front of traffic to kill himself. pt was seen at tx team meeting room with medical students, pt was emotional, less overwhelmed, did not cry today, but was about to. still has mind racing, still seems to have difficulties to concentrate and stay focused, pt said that he wants to continue his HIV meds (nonformulary in the hospital) and if it will be not possible "I will sign myself out", medical team called, no urgency to resume meds, pt also had h/o noncompliance prior to come to the hospital, if meds will be changed pt might develop resistance. pt was educated about it, was appreciative. pt was educated about meds. MSE: Pt was alert, oriented in self, time and place. Memory and concentration fair, fund of knowledge is fair. Pt deemed to be unreliable historian, well related to this conventional mortgage underwriter. Pt looks younger than chronological age, good personal hygiene, good ADLs, psychomotor retardation, speech was: underproductive , eye contact: intense, mood described: "I am little better", affect: less tearful, mood congruent, thought process: goal directed and organized, thought content: denied SI/ HI, denied v/a/t hallucinations, denied paranoid ideation and pt does not appear to be internally preoccupied or responding to internal stimuli, insight: poor judgment: fair, impulses are well controlled. Pt tolerates meds well, no side effects observed or reported, AIMS 0, no EPS Impression: DSM V: as per h/o bipolar as per h/o ?ADHD Plan: Milieu/structure/supportive therapy Medical consult appreciated, see medical team note for more detailed info SW consultation for discharge plan and social issues Med management sonata remeron will be resumed effexor will be increased to 75mg bid mg po bid for depression and anxiety ativan 0.5mg po tid, with plan to wean it off buspar started 5mg bid for anxiety abilify 5mg po hs for mood stabilization neurontin Family involvement Follow up on labs Will monitor closely Pt was educated about risk/benefits and alternatives of medications, coping strategies (safety plan, suicide prevention), relapse prevention, importance of follow up with psychiatrist and therapist, stay away from drugs/alcohol/smoking MVI, thiamine, folic acid Monitor vitals Ativan scheduled and PRN Medication Change: Yes (effexor increased) Medical Record Reviewed: Yes Consults ordered or reviewed: medical and ID consult appreciated ID suggested hem/onc consult, discussed with , pt was dehydrated doing better, but no Hem/onc consult recommended from her side discussed with 05/23/17 Mental Status Examination - Cognitive Function Orientation: Person, Place, Situation - Mood Mood: Depressed, Anxious - Affect Affect: Constricted - Formal Thought Process Formal Thought Process: No Impairment - Homicidal Ideation Homicidal Ideation: No Goal/Treatment Plan - Goal/Treatment Plan Need for Continued Stay: Remain at risks for inpatient hospitalization, Severe depression anxiety, Discharge may exacerbated symptoms, Severe functional impairment Progress Toward Problem(s) and Goals/Treatment Plan: * Group, milieu and supportive tx * Remeron 15 mg HS for depression * Abilify 5 mg PO HS to augment remeron for depression * Neurontin 200 mg PO TID for anxiety and mood control, off label * Sonata 5 mg HS prn: insomnia * Ativan 1 mg q6 for alcohol withdrawal, taper as tolerated * Awaiting medical consult * Vitals reviewed and noted below: Selected Entries 04/23/17 05/18/17 07:35 21:29 Temperature 97.4 F L 98.0 F Pulse Rate 64 85 Respiratory 20 18 Rate Blood Pressure 110/55 L 133/75 O2 Sat by Pulse 98 Oximetry ER LABS AND STUDIES 05/18/17 21:05: Urine Color Yellow, Urine Appearance Clear, Urine pH 6.0, Ur Specific [place] 1.020, Urine Protein Trace H, Urine Glucose (UA) Negative, Urine Ketones Trace H, Urine Blood Negative, Urine Nitrate Negative, Urine Bilirubin Negative, Urine Urobilinogen 0.2, Ur Leukocyte Esterase Negative, Urine RBC Pending, Urine WBC Pending 05/18/17 20:44: Alcohol, Quantitative 283 H 05/18/17 20:44: Salicylates < 1 L, Acetaminophen < 10.0 L 05/18/17 20:44: Sodium 149 H, Potassium 4.3, Chloride 104, Carbon Dioxide 32, Anion Gap 17, BUN 10, Creatinine 0.9, Est GFR ( Amer) > 60, Est GFR (Non- Af Amer) > 60, Random Glucose 92, Calcium 9.0, Total Bilirubin 0.6, AST 149 H D , ALT 168 H, Alkaline Phosphatase 67, Total Protein 8.9 H, Albumin 4.6, Globulin 4.3, Albumin/Globulin Ratio 1.1 05/18/17 20:44: WBC 7.1, RBC 5.58, Hgb 18.4 H*, Hct 50.7, MCV 90.9, MCH 33.0, MCHC 36.3, RDW 13.0, Plt Count 325, MPV 9.4, Gran % 51.6, Lymph % (Auto) 38.1 H , [place] % (Auto) 7.9 H, Eos % (Auto) 1.6, Baso % (Auto) 0.8, Gran # 3.64, Lymph # 2.7, [place] # 0.6, Eos # 0.1, Baso # 0.06 EKG: Rate : 64 BPM Rhythm : NSR Interpretation : Nonspecific ST segment changes, chest xray: No active disease FLOOR LABS 05/19/17 05/19/17 06:40 06:40 Triglycerides 56 Cholesterol 166 LDL Cholesterol Direct 78 HDL Cholesterol 74 H TSH 3rd Generation 1.62 Estimated Date of D/C: 05/28/17
--- NOTE | 2017-05-23 17:07 | PN ---
SUBJECTIVE: The patient seen in bed, in no acute distress, nontoxic, was seen early in the psychiatric floor. PHYSICAL EXAMINATION VITAL SIGNS: Temperature is 98, blood pressure is 117/70, respiratory rate 20, heart rate of 80. HEENT: Unremarkable. NECK: Supple. LUNGS: Decreased breath sounds. HEART: Normal S1 and S2. ABDOMEN: Soft and nontender. LABORATORY EXAMINATION: Reveals a white count of 5.6, hemoglobin of 17, platelets of 281. Chemistry reveals a BUN of 10, creatinine of 0.7. CD4 percentage is 28%. ASSESSMENT AND PLAN: A 26-year-old male with positive human immunodeficiency virus since , history of schizophrenia, depression, substance abuse, smoking history, currently on his human immunodeficiency virus medication, Genvoya. He does have erythrocytosis, which requires further workup. Recommended for him to continue following his human immunodeficiency virus doctor and later we will do workup as outpatient. Continue Genvoya and may emphasize the importance of being compliant to his medications. Roby Montana MD
[2017-05-24] MEDS: Multivitamin Therapeutic Tab PO SCH (08:48)
[2017-05-24] MEDS: [UNRECOGNIZED DRUG - OTHER] PO SCH (09:00)
--- NOTE | 2017-05-24 15:04 | PCM.PYCHPN ---
Psychiatric Progress Note - Psychiatric Progress Note Patient seen today, length of contact: 30min Patient Chief Complaint: "I am little better" Diagnostic Results: 05/20/17 07:54 05/20/17 07:54 Lab Results 05/20/17 07:54: Sodium 141, Potassium 4.1, Chloride 101, Carbon Dioxide 30, Anion Gap 14, BUN 10, Creatinine 0.7, Est GFR ( Amer) > 60, Est GFR (Non- Af Amer) > 60, Random Glucose 98, Calcium 9.5, Phosphorus 3.6, Magnesium 1.9, Total Bilirubin 1.6 H, AST 109 H D, ALT 154 H, Alkaline Phosphatase 61, Total Protein 8.7 H, Albumin 4.5, Globulin 4.2, Albumin/Globulin Ratio 1.1 05/20/17 07:54: WBC 5.6 D, RBC 5.29, Hgb 17.3, Hct 48.7, MCV 92.1, MCH 32.7, MCHC 35.5, RDW 13.0, Plt Count 281, MPV 9.9 05/19/17 18:56: Hepatitis A IgM Ab Negative, Hep Bs Antigen Negative, Hep B Core IgM Ab Negative, Hepatitis C Antibody Negative 05/19/17 06:40: TSH 3rd Generation 1.62 05/19/17 06:40: Hemoglobin A1c 5.5 05/19/17 06:40: Triglycerides 56, Cholesterol 166, LDL Cholesterol Direct 78, HDL Cholesterol 74 H 05/18/17 21:05: Urine Opiates Screen Negative, Urine Methadone Screen Negative, Ur Barbiturates Screen Negative, Ur Phencyclidine Scrn Negative, Ur Amphetamines Screen Negative, U Benzodiazepines Scrn Negative, U Oth Cocaine Metabols Negative, U Cannabinoids Screen Positive H 05/18/17 21:05: Urine Color Yellow, Urine Appearance Clear, Urine pH 6.0, Ur Specific [place] 1.020, Urine Protein Trace H, Urine Glucose (UA) Negative, Urine Ketones Trace H, Urine Blood Negative, Urine Nitrate Negative, Urine Bilirubin Negative, Urine Urobilinogen 0.2, Ur Leukocyte Esterase Negative, Urine RBC 0 - 2, Urine WBC 0 - 2, Ur Epithelial Cells 0 - 2 05/18/17 20:44: Alcohol, Quantitative 283 H 05/18/17 20:44: Salicylates < 1 L, Acetaminophen < 10.0 L 05/18/17 20:44: Sodium 149 H, Potassium 4.3, Chloride 104, Carbon Dioxide 32, Anion Gap 17, BUN 10, Creatinine 0.9, Est GFR ( Amer) > 60, Est GFR (Non- Af Amer) > 60, Random Glucose 92, Calcium 9.0, Total Bilirubin 0.6, AST 149 H D , ALT 168 H, Alkaline Phosphatase 67, Total Protein 8.9 H, Albumin 4.6, Globulin 4.3, Albumin/Globulin Ratio 1.1 05/18/17 20:44: WBC 7.1, RBC 5.58, Hgb 18.4 H*, Hct 50.7, MCV 90.9, MCH 33.0, MCHC 36.3, RDW 13.0, Plt Count 325, MPV 9.4, Gran % 51.6, Lymph % (Auto) 38.1 H , [place] % (Auto) 7.9 H, Eos % (Auto) 1.6, Baso % (Auto) 0.8, Gran # 3.64, Lymph # 2.7, [place] # 0.6, Eos # 0.1, Baso # 0.06 Vital Signs Temp Pulse Resp BP Pulse Ox 05/19/17 16:00 75 123/84 05/19/17 07:00 97.9 F 78 20 114/83 05/18/17 21:29 98.0 F 85 18 133/75 98 Temp Pulse Resp BP Pulse Ox 97.9 F 64 19 120/74 98 05/21/17 06:46 05/21/17 06:46 05/21/17 06:46 05/21/17 06:46 05/21/17 06:46 Abnormal Lab Results 05/20/17 07:30 Absolute Lymphs (Flow) 1824 % CD4 Cells 28 L Absolute CD4 Count 506 T-Help/Suppress Ratio 0.50 L % CD8 Cells 55 H Absolute CD8 Count 1012 Temp Pulse Resp BP Pulse Ox 97.7 F 75 20 117/71 98 05/22/17 07:15 05/22/17 07:15 05/22/17 07:15 05/22/17 07:15 05/21/17 06:46 Temp Pulse Resp BP Pulse Ox 97.7 F 78 20 113/66 98 05/22/17 07:15 05/22/17 16:00 05/22/17 07:15 05/22/17 16:00 05/21/17 06:46 DSM 5 Symptoms Update: Patient is a single HIV+ 26 year old male with a psychiatric history of bipolar disorder, borderline personality disorder, panic disorder, alcohol dependency, stimulant abuse, numerous admissions-most recently at [facility] 04/19/17-04/23, poor compliance with aftercare recommendations and medications who was brought in by EMS to the emergency department for suicidal ideation and alcohol intoxication. ER report indicates that patient was trying to jump in front of traffic to kill himself. pt was seen next to the nursing station with students, pt was emotional, less overwhelmed, "I feel more leveled today", pt still dramatic, all or nothing thinking, restless. pt was educated about meds. MSE: Pt was alert, oriented in self, time and place. Memory and concentration fair, fund of knowledge is fair. 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 Pt looks younger than chronological age, good personal hygiene, good ADLs, psychomotor retardation, speech was: underproductive , eye contact: intense, mood described: "I am little better", affect: less tearful, mood congruent, thought process: goal directed and organized, thought content: denied SI/ HI, denied v/a/t hallucinations, denied paranoid ideation and pt does not appear to be internally preoccupied or responding to internal stimuli, insight: poor judgment: fair, impulses are well controlled. Pt tolerates meds well, no side effects observed or reported, AIMS 0, no EPS Impression: DSM V: as per h/o bipolar as per h/o ?ADHD Plan: Milieu/structure/supportive therapy Medical consult appreciated, see medical team note for more detailed info SW consultation for discharge plan and social issues Med management sonata remeron will be resumed effexor 75mg bid mg po bid for depression and anxiety ativan 0.5mg po bid, with plan to wean it off buspar started 5mg bid for anxiety abilify 5mg po amhs for mood stabilization neurontin Family involvement Follow up on labs Will monitor closely Pt was educated about risk/benefits and alternatives of medications, coping strategies (safety plan, suicide prevention), relapse prevention, importance of follow up with psychiatrist and therapist, stay away from drugs/alcohol/smoking MVI, thiamine, folic acid Monitor vitals Ativan scheduled and PRN Medication Change: Yes (effexor increased) Medical Record Reviewed: Yes Mental Status Examination - Cognitive Function Orientation: Person, Place, Situation - Mood Mood: Depressed, Anxious - Affect Affect: Constricted - Formal Thought Process Formal Thought Process: No Impairment - Homicidal Ideation Homicidal Ideation: No Goal/Treatment Plan - Goal/Treatment Plan Need for Continued Stay: Remain at risks for inpatient hospitalization, Severe depression anxiety, Discharge may exacerbated symptoms, Severe functional impairment Progress Toward Problem(s) and Goals/Treatment Plan: * Group, milieu and supportive tx * Remeron 15 mg HS for depression * Abilify 5 mg PO HS to augment remeron for depression * Neurontin 200 mg PO TID for anxiety and mood control, off label * Sonata 5 mg HS prn: insomnia * Ativan 1 mg q6 for alcohol withdrawal, taper as tolerated * Awaiting medical consult * Vitals reviewed and noted below: Selected Entries 04/23/17 05/18/17 07:35 21:29 Temperature 97.4 F L 98.0 F Pulse Rate 64 85 Respiratory 20 18 Rate Blood Pressure 110/55 L 133/75 O2 Sat by Pulse 98 Oximetry ER LABS AND STUDIES 05/18/17 21:05: Urine Color Yellow, Urine Appearance Clear, Urine pH 6.0, Ur Specific [place] 1.020, Urine Protein Trace H, Urine Glucose (UA) Negative, Urine Ketones Trace H, Urine Blood Negative, Urine Nitrate Negative, Urine Bilirubin Negative, Urine Urobilinogen 0.2, Ur Leukocyte Esterase Negative, Urine RBC Pending, Urine WBC Pending 05/18/17 20:44: Alcohol, Quantitative 283 H 05/18/17 20:44: Salicylates < 1 L, Acetaminophen < 10.0 L 05/18/17 20:44: Sodium 149 H, Potassium 4.3, Chloride 104, Carbon Dioxide 32, Anion Gap 17, BUN 10, Creatinine 0.9, Est GFR ( Amer) > 60, Est GFR (Non- Af Amer) > 60, Random Glucose 92, Calcium 9.0, Total Bilirubin 0.6, AST 149 H D , ALT 168 H, Alkaline Phosphatase 67, Total Protein 8.9 H, Albumin 4.6, Globulin 4.3, Albumin/Globulin Ratio 1.1 05/18/17 20:44: WBC 7.1, RBC 5.58, Hgb 18.4 H*, Hct 50.7, MCV 90.9, MCH 33.0, MCHC 36.3, RDW 13.0, Plt Count 325, MPV 9.4, Gran % 51.6, Lymph % (Auto) 38.1 H , [place] % (Auto) 7.9 H, Eos % (Auto) 1.6, Baso % (Auto) 0.8, Gran # 3.64, Lymph # 2.7, [place] # 0.6, Eos # 0.1, Baso # 0.06 EKG: Rate : 64 BPM Rhythm : NSR Interpretation : Nonspecific ST segment changes, chest xray: No active disease FLOOR LABS 05/19/17 05/19/17 06:40 06:40 Triglycerides 56 Cholesterol 166 LDL Cholesterol Direct 78 HDL Cholesterol 74 H TSH 3rd Generation 1.62 Estimated Date of D/C: 05/28/17
--- NOTE | 2017-05-24 15:33 | PCM.BM ---
Treatment Plan Problems - Problems identified on initial assessmt substance abuse Date Initiated: 05/18/17 Time Initiated: 22:25 Assessment reference: NA Status: Active Priority: 1 Treatment assets and liabiliti Patient Assests: self-reliant, ADL independent, negotiates basic needs, good interpersonal skills Patient Liabilities: live alone, poor support system, substance abuse, medical problems - Diagnosis (1) Bipolar disorder Status: Acute Interventions: 05/20/17 10:59 Psychoeducation Psychopharmacology/adjustment of medications as needed/ monitoring possible side effects Monitor blood level of mood stabilizers Evaluate pt on daily basis Compliance with medications and follow up appointments Suicide and homicide risk assessment and prevention, coping strategies, safety plan Relapse prevention Reduction of symptoms Improve functional status Family involvement As outpatient: cognitive behavioral therapy (2) Cannabis abuse Status: Acute Interventions: 05/20/17 10:58 Maintaining sobriety Relapse prevention psychoeducation (3) Alcohol abuse Status: Acute Interventions: 05/20/17 10:58 Monitoring withdrawal symptoms Medical detoxification Pharmacotherapy for alcohol/benzos/opioid dependence Maintaining sobriety Relapse prevention Possible rehabilitation Motivational interviewing 12-step programs: AA meetings - Milieu Protocol Maintain good personal hygiene: daily Encourage regular showers, daily Remind patient to perform daily oral care, daily Assist patient to perform ADL's Maintain personal safety: daily Educate patient to report safety concerns to staff, daily Monitor environment for contraband/sharps Medication safety: Monitor for expected outcome, potential side effects: daily, Assess barriers to learning: daily, Assess readiness for medication education: daily Milieu Narrative: * Group, milieu and supportive tx * Remeron 15 mg HS for depression * Abilify 5 mg PO HS to augment remeron for depression * Neurontin 200 mg PO TID for anxiety and mood control, off label * Sonata 5 mg HS prn: insomnia * Ativan 1 mg q6 for alcohol withdrawal, taper as tolerated * Awaiting medical consult * Vitals reviewed and noted below: Selected Entries 04/23/17 05/18/17 07:35 21:29 Temperature 97.4 F L 98.0 F Pulse Rate 64 85 Respiratory 20 18 Rate Blood Pressure 110/55 L 133/75 O2 Sat by Pulse 98 Oximetry ER LABS AND STUDIES 05/18/17 21:05: Urine Color Yellow, Urine Appearance Clear, Urine pH 6.0, Ur Specific [place] 1.020, Urine Protein Trace H, Urine Glucose (UA) Negative, Urine Ketones Trace H, Urine Blood Negative, Urine Nitrate Negative, Urine Bilirubin Negative, Urine Urobilinogen 0.2, Ur Leukocyte Esterase Negative, Urine RBC Pending, Urine WBC Pending 05/18/17 20:44: Alcohol, Quantitative 283 H 05/18/17 20:44: Salicylates < 1 L, Acetaminophen < 10.0 L 05/18/17 20:44: Sodium 149 H, Potassium 4.3, Chloride 104, Carbon Dioxide 32, Anion Gap 17, BUN 10, Creatinine 0.9, Est GFR ( Amer) > 60, Est GFR (Non- Af Amer) > 60, Random Glucose 92, Calcium 9.0, Total Bilirubin 0.6, AST 149 H D , ALT 168 H, Alkaline Phosphatase 67, Total Protein 8.9 H, Albumin 4.6, Globulin 4.3, Albumin/Globulin Ratio 1.1 05/18/17 20:44: WBC 7.1, RBC 5.58, Hgb 18.4 H*, Hct 50.7, MCV 90.9, MCH 33.0, MCHC 36.3, RDW 13.0, Plt Count 325, MPV 9.4, Gran % 51.6, Lymph % (Auto) 38.1 H , [place] % (Auto) 7.9 H, Eos % (Auto) 1.6, Baso % (Auto) 0.8, Gran # 3.64, Lymph # 2.7, [place] # 0.6, Eos # 0.1, Baso # 0.06 EKG: Rate : 64 BPM Rhythm : NSR Interpretation : Nonspecific ST segment changes, chest xray: No active disease FLOOR LABS 05/19/17 05/19/17 06:40 06:40 Triglycerides 56 Cholesterol 166 LDL Cholesterol Direct 78 HDL Cholesterol 74 H TSH 3rd Generation 1.62 Family Contact Family involvement: No known Family/SO Family contact: Patient declines to allow family contact at present Discharge/Continuing Care - Education Needs Education Needs: Patient Medication, Patient Diagnosis/Disease Process, Patient Coping Skills, Patient Anger Management skills, Patient Activities of Daily Living, Patient Pain - Discharge Discharge Criteria: Free of Suicidal thoughts, Normal sleep pattern - Treatment Team Participation Patient/Family/SO Statement: * Group, milieu and supportive tx * Remeron 15 mg HS for depression * Abilify 5 mg PO HS to augment remeron for depression * Neurontin 200 mg PO TID for anxiety and mood control, off label * Sonata 5 mg HS prn: insomnia * Ativan 1 mg q6 for alcohol withdrawal, taper as tolerated * Awaiting medical consult * Vitals reviewed and noted below: Selected Entries 04/23/17 05/18/17 07:35 21:29 Temperature 97.4 F L 98.0 F Pulse Rate 64 85 Respiratory 20 18 Rate Blood Pressure 110/55 L 133/75 O2 Sat by Pulse 98 Oximetry ER LABS AND STUDIES 05/18/17 21:05: Urine Color Yellow, Urine Appearance Clear, Urine pH 6.0, Ur Specific [place] 1.020, Urine Protein Trace H, Urine Glucose (UA) Negative, Urine Ketones Trace H, Urine Blood Negative, Urine Nitrate Negative, Urine Bilirubin Negative, Urine Urobilinogen 0.2, Ur Leukocyte Esterase Negative, Urine RBC Pending, Urine WBC Pending 05/18/17 20:44: Alcohol, Quantitative 283 H 05/18/17 20:44: Salicylates < 1 L, Acetaminophen < 10.0 L 05/18/17 20:44: Sodium 149 H, Potassium 4.3, Chloride 104, Carbon Dioxide 32, Anion Gap 17, BUN 10, Creatinine 0.9, Est GFR ( Amer) > 60, Est GFR (Non- Af Amer) > 60, Random Glucose 92, Calcium 9.0, Total Bilirubin 0.6, AST 149 H D , ALT 168 H, Alkaline Phosphatase 67, Total Protein 8.9 H, Albumin 4.6, Globulin 4.3, Albumin/Globulin Ratio 1.1 05/18/17 20:44: WBC 7.1, RBC 5.58, Hgb 18.4 H*, Hct 50.7, MCV 90.9, MCH 33.0, MCHC 36.3, RDW 13.0, Plt Count 325, MPV 9.4, Gran % 51.6, Lymph % (Auto) 38.1 H , [place] % (Auto) 7.9 H, Eos % (Auto) 1.6, Baso % (Auto) 0.8, Gran # 3.64, Lymph # 2.7, [place] # 0.6, Eos # 0.1, Baso # 0.06 EKG: Rate : 64 BPM Rhythm : NSR Interpretation : Nonspecific ST segment changes, chest xray: No active disease FLOOR LABS 05/19/17 05/19/17 06:40 06:40 Triglycerides 56 Cholesterol 166 LDL Cholesterol Direct 78 HDL Cholesterol 74 H TSH 3rd Generation 1.62
--- NOTE | 2017-05-24 18:10 | CP.PCM.PN ---
Subjective - Date & Time of Evaluation Date of Evaluation: 05/24/17 Time of Evaluation: 11:45 - Subjective Subjective: Comfortable, not in distress. Objective - Vital Signs/Intake and Output Vital Signs (last 24 hours): Temp Pulse Resp BP Pulse Ox 97.3 F L 85 18 108/70 98 05/24/17 06:39 05/24/17 06:39 05/24/17 06:39 05/24/17 06:39 05/21/17 06:46 - Medications Medications: Current Medications Aripiprazole (Abilify) 5 mg PO HS [facility] Last Admin: 05/23/17 21:23 Dose: 5 mg Buspirone HCl (Buspar) 5 mg PO BID [facility] PRN Reason: Protocol Last Admin: 05/24/17 08:49 Dose: 5 mg Folic Acid (Folic Acid) 1 mg PO DAILY [facility] Last Admin: 05/24/17 08:48 Dose: 1 mg Gabapentin (Neurontin) 300 mg PO TID [facility] PRN Reason: Protocol Last Admin: 05/24/17 08:48 Dose: 300 mg Lorazepam (Ativan) 0.5 mg PO TID [facility] PRN Reason: Protocol Last Admin: 05/24/17 08:58 Dose: 0.5 mg Mirtazapine (Remeron) 7.5 mg PO [facility] Last Admin: 05/23/17 21:23 Dose: 7.5 mg Multivitamins (Thera Tab) 1 tab PO 0800 [facility] Last Admin: 05/24/17 08:48 Dose: 1 tab Nicotine (Nicoderm Cq) 1 patch TD DAILY [facility] Last Admin: 05/24/17 09:01 Dose: Not Given Non-Formulary Medication (Elviteg/Elis/Emtric/Tenofo Ala [Genvoya Tablet]) 1 each PO DAILY [facility] Last Admin: 05/24/17 09:00 Dose: Not Given Thiamine HCl (Vitamin B1 Tab) 100 mg PO DAILY [facility] Last Admin: 05/24/17 08:49 Dose: 100 mg Venlafaxine HCl (Effexor) 75 mg PO BID [facility] Last Admin: 05/24/17 08:48 Dose: 75 mg Zaleplon (Sonata) 10 mg PO HS [facility] Last Admin: 05/23/17 21:23 Dose: 10 mg - Labs Labs: 05/20/17 07:54 05/20/17 07:54 - Constitutional Appears: Non-toxic, No Acute Distress - Head Exam Head Exam: NORMAL INSPECTION - ENT Exam ENT Exam: Mucous Membranes Moist - Neck Exam Neck Exam: absent: Meningismus - Respiratory Exam Respiratory Exam: Decreased Breath Sounds - Cardiovascular Exam Cardiovascular Exam: +S1, +S2 - GI/Abdominal Exam GI & Abdominal Exam: Soft. absent: Tenderness Assessment and Plan - Assessment and Plan (Free Text) Plan: Assessment chronic HIV infection (since ), latest CD4 506, VL detectable schizophrenia history of depression significant smoking history history of substance abuse Plan Continue Genvoya reiterated importance of compliance to HIV meds - will need to see his regular HIV doctor as an outpatient to see if his virus load continues to be detectable despite Genvoya
[2017-05-25] MEDS: Multivitamin Therapeutic Tab PO SCH (08:52)
[2017-05-25] MEDS: [UNRECOGNIZED DRUG - OTHER] PO SCH (09:50)
--- NOTE | 2017-05-25 11:32 | PCM.PYCHPN ---
Psychiatric Progress Note - Psychiatric Progress Note Patient seen today, length of contact: 30min Patient Chief Complaint: "I am little better" Diagnostic Results: 05/20/17 07:54 05/20/17 07:54 Lab Results 05/20/17 07:54: Sodium 141, Potassium 4.1, Chloride 101, Carbon Dioxide 30, Anion Gap 14, BUN 10, Creatinine 0.7, Est GFR ( Amer) > 60, Est GFR (Non- Af Amer) > 60, Random Glucose 98, Calcium 9.5, Phosphorus 3.6, Magnesium 1.9, Total Bilirubin 1.6 H, AST 109 H D, ALT 154 H, Alkaline Phosphatase 61, Total Protein 8.7 H, Albumin 4.5, Globulin 4.2, Albumin/Globulin Ratio 1.1 05/20/17 07:54: WBC 5.6 D, RBC 5.29, Hgb 17.3, Hct 48.7, MCV 92.1, MCH 32.7, MCHC 35.5, RDW 13.0, Plt Count 281, MPV 9.9 05/19/17 18:56: Hepatitis A IgM Ab Negative, Hep Bs Antigen Negative, Hep B Core IgM Ab Negative, Hepatitis C Antibody Negative 05/19/17 06:40: TSH 3rd Generation 1.62 05/19/17 06:40: Hemoglobin A1c 5.5 05/19/17 06:40: Triglycerides 56, Cholesterol 166, LDL Cholesterol Direct 78, HDL Cholesterol 74 H 05/18/17 21:05: Urine Opiates Screen Negative, Urine Methadone Screen Negative, Ur Barbiturates Screen Negative, Ur Phencyclidine Scrn Negative, Ur Amphetamines Screen Negative, U Benzodiazepines Scrn Negative, U Oth Cocaine Metabols Negative, U Cannabinoids Screen Positive H 05/18/17 21:05: Urine Color Yellow, Urine Appearance Clear, Urine pH 6.0, Ur Specific [place] 1.020, Urine Protein Trace H, Urine Glucose (UA) Negative, Urine Ketones Trace H, Urine Blood Negative, Urine Nitrate Negative, Urine Bilirubin Negative, Urine Urobilinogen 0.2, Ur Leukocyte Esterase Negative, Urine RBC 0 - 2, Urine WBC 0 - 2, Ur Epithelial Cells 0 - 2 05/18/17 20:44: Alcohol, Quantitative 283 H 05/18/17 20:44: Salicylates < 1 L, Acetaminophen < 10.0 L 05/18/17 20:44: Sodium 149 H, Potassium 4.3, Chloride 104, Carbon Dioxide 32, Anion Gap 17, BUN 10, Creatinine 0.9, Est GFR ( Amer) > 60, Est GFR (Non- Af Amer) > 60, Random Glucose 92, Calcium 9.0, Total Bilirubin 0.6, AST 149 H D , ALT 168 H, Alkaline Phosphatase 67, Total Protein 8.9 H, Albumin 4.6, Globulin 4.3, Albumin/Globulin Ratio 1.1 05/18/17 20:44: WBC 7.1, RBC 5.58, Hgb 18.4 H*, Hct 50.7, MCV 90.9, MCH 33.0, MCHC 36.3, RDW 13.0, Plt Count 325, MPV 9.4, Gran % 51.6, Lymph % (Auto) 38.1 H , [place] % (Auto) 7.9 H, Eos % (Auto) 1.6, Baso % (Auto) 0.8, Gran # 3.64, Lymph # 2.7, [place] # 0.6, Eos # 0.1, Baso # 0.06 Vital Signs Temp Pulse Resp BP Pulse Ox 05/19/17 16:00 75 123/84 05/19/17 07:00 97.9 F 78 20 114/83 05/18/17 21:29 98.0 F 85 18 133/75 98 Temp Pulse Resp BP Pulse Ox 97.9 F 64 19 120/74 98 05/21/17 06:46 05/21/17 06:46 05/21/17 06:46 05/21/17 06:46 05/21/17 06:46 Abnormal Lab Results 05/20/17 07:30 Absolute Lymphs (Flow) 1824 % CD4 Cells 28 L Absolute CD4 Count 506 T-Help/Suppress Ratio 0.50 L % CD8 Cells 55 H Absolute CD8 Count 1012 Temp Pulse Resp BP Pulse Ox 97.7 F 75 20 117/71 98 05/22/17 07:15 05/22/17 07:15 05/22/17 07:15 05/22/17 07:15 05/21/17 06:46 Temp Pulse Resp BP Pulse Ox 97.7 F 78 20 113/66 98 05/22/17 07:15 05/22/17 16:00 05/22/17 07:15 05/22/17 16:00 05/21/17 06:46 Temp Pulse Resp BP Pulse Ox 97.3 F L 74 18 126/82 98 05/24/17 06:39 05/24/17 17:23 05/24/17 06:39 05/24/17 17:23 05/21/17 06:46 DSM 5 Symptoms Update: Patient is a single HIV+ 26 year old male with a psychiatric history of bipolar disorder, borderline personality disorder, panic disorder, alcohol dependency, stimulant abuse, numerous admissions-most recently at [facility] 04/19/17-04/23, poor compliance with aftercare recommendations and medications who was brought in by EMS to the emergency department for suicidal ideation and alcohol intoxication. ER report indicates that patient was trying to jump in front of traffic to kill himself. pt was seen next to the nursing station with a nurse, pt was less emotional, less overwhelmed, "I feel more leveled today", pt seems to be improving, pt was educated about naltrexon for alcohol cravings, pt was educated about risk, benefits and alternatives. MSE: Pt was alert, oriented in self, time and place. Memory and concentration fair, fund of knowledge is fair. 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 Pt looks younger than chronological age, good personal hygiene, good ADLs, psychomotor retardation, speech was: normal rate, quality and quantity, eye contact:intense, mood described: "I am little better", affect: was constricted but more reactive, thought process: goal directed and organized, thought content: denied SI/ HI, denied v/a/t hallucinations, denied paranoid ideation and pt does not appear to be internally preoccupied or responding to internal stimuli, insight: poor judgment: fair, impulses are well controlled. Pt tolerates meds well, no side effects observed or reported, AIMS 0, no EPS Impression: DSM V: as per h/o bipolar as per h/o ?ADHD Plan: Milieu/structure/supportive therapy Medical consult appreciated, see medical team note for more detailed info SW consultation for discharge plan and social issues Med management remeron resumed effexor 100mg bid mg po bid for depression and anxiety ativan 0.5mg po bid PRN buspar 5mg bid for anxiety abilify 5mg po amhs for mood stabilization neurontin increased 600mg po tid naltrexone 50mg po daily Family involvement Follow up on labs Will monitor closely Pt was educated about risk/benefits and alternatives of medications, coping strategies (safety plan, suicide prevention), relapse prevention, importance of follow up with psychiatrist and therapist, stay away from drugs/alcohol/smoking MVI, thiamine, folic acid Monitor vitals Ativan scheduled and PRN Medication Change: Yes (effexor increased) Medical Record Reviewed: Yes Consults ordered or reviewed: medical and ID consult appreciated ID suggested hem/onc consult, discussed with , pt was dehydrated doing better, but no Hem/onc consult recommended from her side discussed with 05/25/17, HIV meds should be resumed as outpatient Goal/Treatment Plan - Goal/Treatment Plan Need for Continued Stay: Remain at risks for inpatient hospitalization, Severe depression anxiety, Discharge may exacerbated symptoms, Severe functional impairment Progress Toward Problem(s) and Goals/Treatment Plan: FLOOR LABS 05/19/17 05/19/17 06:40 06:40 Triglycerides 56 Cholesterol 166 LDL Cholesterol Direct 78 HDL Cholesterol 74 H TSH 3rd Generation 1.62 Estimated Date of D/C: 05/28/17
[2017-05-25 14:32] VITALS: O2SAT 99
[2017-05-26 06:51] VITALS: BP 109/67; PULSE 76; RESP 20; TEMP 98.7
[2017-05-26] MEDS ORDERED: Venlafaxine 75 mg ER Cap PO SCH (08:00)
[2017-05-26] MEDS: Multivitamin Therapeutic Tab PO SCH (09:07)
[2017-05-26] MEDS: [UNRECOGNIZED DRUG - OTHER] PO SCH (10:08)
--- NOTE | 2017-05-26 11:49 | CP.PCM.PN ---
<Claudy Ramirez - Last Filed: 05/26/17 11:46> Subjective - Date & Time of Evaluation Date of Evaluation: 05/26/17 Time of Evaluation: 11:46 - Subjective Subjective: Medicine Progress Note Pt seen and examined at bedside. Pt states he has mild discomfort in penis after urinating. Pt states he does not have any burning on urination or discharge. Pt also mentions he practices safe sexual behavior, using condoms. Objective - Vital Signs/Intake and Output Vital Signs (last 24 hours): Temp Pulse Resp BP Pulse Ox 98.7 F 76 20 109/67 99 05/26/17 07:00 05/26/17 07:00 05/26/17 07:00 05/26/17 07:00 05/25/17 07:00 - Labs Labs: 05/20/17 07:54 05/20/17 07:54 - Constitutional Appears: Non-toxic, No Acute Distress - Head Exam Head Exam: ATRAUMATIC, NORMAL INSPECTION, NORMOCEPHALIC - Respiratory Exam Respiratory Exam: Clear to Ausculation Bilateral, Rales, Rhonchi, Wheezes, NORMAL BREATHING PATTERN - Cardiovascular Exam Cardiovascular Exam: RRR, +S1, +S2 - GI/Abdominal Exam GI & Abdominal Exam: Soft, Normal Bowel Sounds. absent: Tenderness - Extremities Exam Extremities Exam: absent: Calf Tenderness, Pedal Edema - Neurological Exam Neurological Exam: Alert, Awake, Oriented x3 - Psychiatric Exam Psychiatric exam: Normal Affect, Normal Mood - Skin Skin Exam: Intact, Normal Color, Warm Assessment and Plan - Assessment and Plan (Free Text) Plan: 26 y/o male with PMHx of congenital HIV and depression initially admitted for suicidal ideation, now in the psychiatry unit. Pt complaining of dysuria symptoms, will obtain UA and urine culture. Will also test urine for GC/ Chlamydia. 1. Suicidal Ideation/Depression - Management per psychiatry 2. Dyuria - UA, urine culture, and GC/Chlamydia ordered - Will follow 3. HIV - Continue home med, [facility] - ID following 4. Dehydration - Resolved 5. Multisubstance abuse - Counseled patient on risks of alcohol and ilicit drug use and advised cessation 6. PPX Pt is ambulatory and does not need GI prophylaxis at this time Ashley PGY-2 <Talisha Rashid - Last Filed: 05/26/17 14:34> Objective - Vital Signs/Intake and Output Vital Signs (last 24 hours): Temp Pulse Resp BP Pulse Ox 98.7 F 76 20 109/67 99 05/26/17 07:00 05/26/17 07:00 05/26/17 07:00 05/26/17 07:00 05/25/17 07:00 - Labs Labs: 05/20/17 07:54 05/20/17 07:54 Attending/Attestation - Attestation I have personally seen and examined this patient.: No I have fully participated in the care of the patient.: No I have reviewed all pertinent clinical information, including history, physical exam and plan: Yes Notes (Text): 05/26/17 14:33 attending note; Patient complaint of urinary discomfort. Patient was examined by medical dosimetrist today. UA and urine culture, urine for chlamydia and gonorrhea ordered. Patient was discharged before rounds today. patient will follow-up with PMD/ID of choice has educated before.
--- NOTE | 2017-05-26 12:25 | PCM.PYCHDC ---
Mental Status Examination - Mental Status Examination Orientation: Person, Place, Situation Memory: Intact Mood: Neutral Affect: Broad (And mood congruent) Speech: Appropriate Attention: WNL Concentration: WNL Association: WNL Fund of Knowledge: WNL Formal Thought Process: No Impairment Description of patient's judgement and insight: Pt has improved insight into mental and medical illness, pt was compliant with medications and unit rules and regulations, pt was going to groups, was calm, cooperative, socially appropriate, no behavioral incidents, no agitation, no aggression. Psychotic Thoughts and Behaviors: Pt denied v/a/t hallucinations, denied paranoid ideations, pt does not appear to be psychotic, and thought process is goal directed. Suicidal Ideation: No Current Homicidal Ideation?: No Plan: pt adamantly denied thoughts of harming self or others denied intent or plan. Discharge Summary - Discharge Note Reason for Hospitalization: depressive symptoms, possible suicidal ideation Psychiatric History (includes Medical, Family, Personal Hx): multiple admissions to the psychiatric inpatient unit in the past Laboratory Data: 05/20/17 07:54 05/20/17 07:54 Lab Results 05/20/17 07:54: Sodium 141, Potassium 4.1, Chloride 101, Carbon Dioxide 30, Anion Gap 14, BUN 10, Creatinine 0.7, Est GFR ( Amer) > 60, Est GFR (Non- Af Amer) > 60, Random Glucose 98, Calcium 9.5, Phosphorus 3.6, Magnesium 1.9, Total Bilirubin 1.6 H, AST 109 H D, ALT 154 H, Alkaline Phosphatase 61, Total Protein 8.7 H, Albumin 4.5, Globulin 4.2, Albumin/Globulin Ratio 1.1 05/20/17 07:54: WBC 5.6 D, RBC 5.29, Hgb 17.3, Hct 48.7, MCV 92.1, MCH 32.7, MCHC 35.5, RDW 13.0, Plt Count 281, MPV 9.9 05/20/17 07:30: HIV-1 RNA Qnt (RT-PCR) 1.34 H 05/20/17 07:30: Absolute Lymphs (Flow) 1824, % CD4 Cells 28 L, Absolute CD4 Count 506, T-Help/Suppress Ratio 0.50 L, % CD8 Cells 55 H, Absolute CD8 Count 1012 05/19/17 18:56: Hepatitis A IgM Ab Negative, Hep Bs Antigen Negative, Hep B Core IgM Ab Negative, Hepatitis C Antibody Negative 05/19/17 06:40: TSH 3rd Generation 1.62 05/19/17 06:40: Hemoglobin A1c 5.5 05/19/17 06:40: Triglycerides 56, Cholesterol 166, LDL Cholesterol Direct 78, HDL Cholesterol 74 H 05/18/17 21:05: Urine Opiates Screen Negative, Urine Methadone Screen Negative, Ur Barbiturates Screen Negative, Ur Phencyclidine Scrn Negative, Ur Amphetamines Screen Negative, U Benzodiazepines Scrn Negative, U Oth Cocaine Metabols Negative, U Cannabinoids Screen Positive H 05/18/17 21:05: Urine Color Yellow, Urine Appearance Clear, Urine pH 6.0, Ur Specific [place] 1.020, Urine Protein Trace H, Urine Glucose (UA) Negative, Urine Ketones Trace H, Urine Blood Negative, Urine Nitrate Negative, Urine Bilirubin Negative, Urine Urobilinogen 0.2, Ur Leukocyte Esterase Negative, Urine RBC 0 - 2, Urine WBC 0 - 2, Ur Epithelial Cells 0 - 2 05/18/17 20:44: Alcohol, Quantitative 283 H 05/18/17 20:44: Salicylates < 1 L, Acetaminophen < 10.0 L 05/18/17 20:44: Sodium 149 H, Potassium 4.3, Chloride 104, Carbon Dioxide 32, Anion Gap 17, BUN 10, Creatinine 0.9, Est GFR ( Amer) > 60, Est GFR (Non- Af Amer) > 60, Random Glucose 92, Calcium 9.0, Total Bilirubin 0.6, AST 149 H D , ALT 168 H, Alkaline Phosphatase 67, Total Protein 8.9 H, Albumin 4.6, Globulin 4.3, Albumin/Globulin Ratio 1.1 05/18/17 20:44: WBC 7.1, RBC 5.58, Hgb 18.4 H*, Hct 50.7, MCV 90.9, MCH 33.0, MCHC 36.3, RDW 13.0, Plt Count 325, MPV 9.4, Gran % 51.6, Lymph % (Auto) 38.1 H , [place] % (Auto) 7.9 H, Eos % (Auto) 1.6, Baso % (Auto) 0.8, Gran # 3.64, Lymph # 2.7, [place] # 0.6, Eos # 0.1, Baso # 0.06 Vital Signs Temp Pulse Resp BP Pulse Ox 05/26/17 07:00 98.7 F 76 20 109/67 05/26/17 06:51 98.7 F 76 20 109/67 05/25/17 16:25 83 120/70 05/25/17 07:00 97.3 F L 85 18 99 05/24/17 17:23 74 126/82 05/24/17 06:39 97.3 F L 85 18 108/70 05/23/17 16:00 86 05/22/17 16:00 78 113/66 05/22/17 07:15 97.7 F 75 20 117/71 05/21/17 16:00 73 109/75 05/21/17 06:46 97.9 F 64 19 120/74 98 05/19/17 16:00 75 123/84 05/19/17 07:00 97.9 F 78 20 114/83 05/18/17 21:29 98.0 F 85 18 133/75 98 Consultations:: List each consultation separately and include: 1. Reason for request. 2. Findings. 3. Follow-up Consultations: medical and ID consult appreciated ID suggested hem/onc consult, discussed with , pt was dehydrated doing better, but no Hem/onc consult recommended from her side discussed with 05/25/17, HIV meds should be resumed as outpatient patient complained of dysuria, medical team evaluated patient pt could be f/u as outpatient Summary of Hospital Course include:: 1. Description of specific treatment plan utilized for patients during their course of treatmen. 2. Summarize the time- course for resolution of acute symptoms and/or regressed behaviors. 3. Describe issues identified and worked on during hospitalization. 4. Describe medication utilized. 5. Describe medical problems identified and treated. 6. Reassessment of suicide risk Summary of Hospital Course: Patient is a single HIV+ 26 year old male with a psychiatric history of bipolar disorder, borderline personality disorder, panic disorder, alcohol dependency, stimulant abuse, numerous admissions-most recently at [facility] 04/19/17-04/23, poor compliance with aftercare recommendations and medications who was brought in by EMS to the emergency department for suicidal ideation and alcohol intoxication. ER report indicates that patient was trying to jump in front of traffic to kill himself. initially pt was seen at tx team meeting, pt was emotional, was crying, seems to be overwhelmed. said he has sexual side effects from the majority of psychotropic medications, including remeron, trazodon, antipsychotic medications. pt said he was feeling depressed and hopeless, low mood and energy. pt was coping with stress with alcohol, smoking marijuana two to three times a week. Pt denies hallucinations and no longer has thoughts to harm himself or others. There were no behavioral issues on the unit overnight Patient has a history of multiple suicide attempts and suicidal gestures. Most recently patient inflicted three lacerations on his arms after his girlfriend broke up with him in early April Patient reports that he has been a dependent on alcohol for last two years~last drink was yesterday. He is unable to quantify his recent use. Patient reports a history of tremors and withdrawal seizures, most recently a few months ago. Patient also has a history of marijuana use, patient smokes marijuana approximately 2 to 3 times weekly. Prior records indicate that he has a history of stimulant abuse. Patient also reports that he smokes half a pack of cigarettes daily. Patient was counseled about the morbidity and mortality risks of continued tobacco use and accepts nicotine patch when offered patient was stabilized on the following medications: Abilify 5 mg daily for mood stabilization Neurontin was increased to 600 mg 3 times a day for mood stabilization Naltrexone was given for alcohol craving Multivitamins, thiamine, and folic acid was given Ativan was weaned off for alcohol withdrawal symptoms Patient did not have any withdrawal symptoms Effexor was started and titrated to 150 mg a day for depression and anxiety Remeron was given for insomnia 15 mg at the nighttime Patient was seen by infectious disease for HAV, medical team, please see notes for more detailed information Patient complains of dysuria, was seen by medical team today, patient could follow up on labs as outpatient Patient requested to be discharged because "I reached maximum effect from this hospitalization, I want to go home, I am not depressed, I do want to kill myself or others, I have follow-up appointment with my psychiatrist on June 17" As per nursing staff patient is calm, corporative, no behavioral incident. Over the course of this hospitalization pt was attending groups, pt also had medication management, had therapeutic milieu. Overall pt improved significantly, pt's affect became brighter, pt was less depressed, has realistic future oriented plans, pt also does not appear to be psychotic, or anxious, pt was socially appropriate, no behavioral issues, pts insight improved as well and soon pt deemed to be ready for discharge. At the time of the discharge pt denied been depressed, denied thoughts of harming self or others, denied psychotic symptoms, and pt does not appeared to be psychotic, denied been anxious, pt is not in imminent danger to self or others, will be following up at [facility], appointment on June 17 information about follow up appointment, time and address provided to the pt, it is patient responsibility to follow up with outpatient clinic, PMD as well as specialists (see SW note for more detailed information). In case pt will need to obtain results of studies pending at discharge pt was provided with contact information of Psychiatric Inpatient unit [phone] as well as Medical Record Department [phone]. Counseling about marijuana and alcohol cessation provided pt was provided with prescriptions for all of medications (please see medication reconciliation form) Pt was educated about safety plan in case of worsening of symptoms or in case of suicidal or homicidal ideation call 911 or go to the nearest ER, also was educated to take meds as prescribed and stay away from drugs, pt verbalized understanding. - Diagnosis (1) Bipolar disorder Status: Chronic Priority: Medium (2) Cannabis abuse Status: Acute (3) Alcohol abuse Status: Chronic Priority: Medium (4) ADHD Status: Suspected Priority: Medium - Final Diagnosis (DSM 5) Condition upon Discharge: FAIR Disposition: HOME/ ROUTINE Follow-up Treatment Plan: At the time of the discharge pt denied been depressed, denied thoughts of harming self or others, denied psychotic symptoms, and pt does not appeared to be psychotic, denied been anxious, pt is not in imminent danger to self or others, will be following up at [facility], appointment on June 17 information about follow up appointment, time and address provided to the pt, it is patient responsibility to follow up with outpatient clinic, PMD as well as specialists (see SW note for more detailed information). In case pt will need to obtain results of studies pending at discharge pt was provided with contact information of Psychiatric Inpatient unit [phone] as well as Medical Record Department [phone]. Counseling about marijuana and alcohol cessation provided pt was provided with prescriptions for all of medications (please see medication reconciliation form) Pt was educated about safety plan in case of worsening of symptoms or in case of suicidal or homicidal ideation call 911 or go to the nearest ER, also was educated to take meds as prescribed and stay away from drugs, pt verbalized understanding. Prescriptions/Medication Reconciliation: ARIPiprazole [Abilify] 5 mg PO AMHS #30 tab busPIRone [Buspar] 5 mg PO BID #30 tab Folic Acid 1 mg PO DAILY #14 tab Gabapentin [Neurontin] 600 mg PO TID #45 tab hydrOXYzine HCl [Atarax] 50 mg PO Q8 #45 tab Mirtazapine [Remeron] 15 mg PO HS #14 tab Multivitamin Therapeutic Tab [Thera Tab] 1 tab PO 0800 #14 tab Naltrexone [Revia] 50 mg PO DAILY #14 tab Thiamine [Vitamin B1 Tab] 100 mg PO DAILY #14 tab Venlafaxine [Effexor XR] 150 mg PO DAILY #14 cer Zaleplon [Sonata] 5 mg PO HS #14 cap - Smoking Cessation Smoking Cessation Medication prescribed: No Reason for not providing: denied smoking
== END 2017-05-26 11:18 | disposition home or self-care (01) | DRG 430 ==
LOC: ED 20:17 → ERH 22:52 → PSYC 05-19 00:07
PROVIDERS: ADMIT Psychiatry & Neurology Psychiatry; ATTEND Psychiatry & Neurology Psychiatry
DX: F31.9 Bipolar disorder, unspecified (principal); E87.0 Hyperosmolality and hypernatremia; F25.9 Schizoaffective disorder, unspecified; E86.0 Dehydration; F10.239 Alcohol dependence with withdrawal, unspecified; F15.10 Other stimulant abuse, uncomplicated; Z21 Asymptomatic human immunodeficiency virus [HIV] infection status; P37.8 Other specified congenital infectious and parasitic diseases; D75.1 Secondary polycythemia; F12.10 Cannabis abuse, uncomplicated; F90.9 Attention-deficit hyperactivity disorder, unspecified type; F60.3 Borderline personality disorder; F17.210 Nicotine dependence, cigarettes, uncomplicated; F41.0 Panic disorder [episodic paroxysmal anxiety]; R45.851 Suicidal ideations; R30.0 Dysuria; Y90.8 Blood alcohol level of 240 mg/100 ml or more; Z91.19 Patient's noncompliance with other medical treatment and regimen; Z91.14 Patient's other noncompliance with medication regimen